=== PATIENT | male | born 1975 | race Caucasian/White ===

== ENCOUNTER 2019-01-10 03:26 | Emergency (ER) | payer OTHER ==
[2019-01-10] MEDS ORDERED: ALBUTEROL 2.5 MG/3 ML NEB SOL ONE (04:21)
[2019-01-10] MEDS ORDERED: IPRATROPIUM BROM 0.5MG/2.5ML ONE (04:21)
--- NOTE | 2019-01-10 05:04 | EDPHYS ---
Physician Documentation [facility] Name: Osmel Luz Age: 43 yrs Sex: Male : 1975 Arrival Date: 01/10/2019 Time: 03:27 Bed 20 Private MD: Alex Rust ED Physician Randy Mayen HPI: 01/10 04:57 This 43 yrs old Male presents to ER via Ambulatory with complaints of Cough, tw4 Sore Throat. 04:57 The patient or guardian reports cough, that is constant. Onset: The symptoms/episode tw4 began/occurred 2 week(s) ago. Severity of symptoms: At their worst the symptoms were moderate, in the emergency department the symptoms are unchanged. Modifying factors: The symptoms are alleviated by nothing, the symptoms are aggravated by nothing. Associated signs and symptoms: The patient has no apparent associated signs or symptoms. The patient has not experienced similar symptoms in the past. Historical: - Allergies: 03:45 No Known Allergies; rr5 - Home Meds: 03:45 None [Active]; rr5 - PMHx: 03:45 Bronchitis; rr5 - PSHx: 03:45 Knee surgery; brain surgery; rr5 - Immunization history:: Adult Immunizations up to date, Flu vaccine is up to date. - Social history:: Smoking status: Patient uses tobacco products, smokes one pack cigarettes per day. quit 2 weeks ago, Patient/guardian denies using alcohol, street drugs. - Ebola Screening: : Patient negative for fever greater than or equal to 101.5 degrees Fahrenheit, and additional compatible Ebola Virus Disease symptoms Patient denies exposure to infectious person Patient denies travel to an Ebola-affected area in the 21 days before illness onset. ROS: 04:57 Constitutional: Negative for fever, chills, and weight loss, Eyes: Negative for injury, tw4 pain, redness, and discharge, Cardiovascular: Negative for chest pain, palpitations, and edema, Abdomen/GI: Negative for abdominal pain, nausea, vomiting, diarrhea, and constipation, Back: Negative for injury and pain, MS/Extremity: Negative for injury and deformity, Skin: Negative for injury, rash, and discoloration, Neuro: Negative for headache, weakness, numbness, tingling, and seizure. 04:57 Respiratory: Positive for cough, Negative for dyspnea on exertion, hemoptysis, orthopnea, pleurisy, shortness of breath, sputum production. Exam: 04:57 Constitutional: This is a well developed, well nourished patient who is awake, alert, tw4 and in no acute distress. Head/Face: Normocephalic, atraumatic. Chest/axilla: Normal chest wall appearance and motion. Nontender with no deformity. No lesions are appreciated. Cardiovascular: Regular rate and rhythm with a normal S1 and S2. No gallops, murmurs, or rubs. Normal PMI, no JVD. No pulse deficits. Abdomen/GI: Soft, non-tender, with normal bowel sounds. No distension or tympany. No guarding or rebound. No evidence of tenderness throughout. Back: No spinal tenderness. No costovertebral tenderness. Full range of motion. MS/ Extremity: Pulses equal, no cyanosis. Neurovascular intact. Full, normal range of motion. Neuro: Awake and alert, GCS 15, oriented to person, place, time, and situation. Cranial nerves II-XII grossly intact. Motor strength 5/5 in all extremities. Sensory grossly intact. Cerebellar exam normal. Normal gait. 04:57 Respiratory: mild respiratory distress is noted, Respirations: normal, Breath sounds: wheezing: Vital Signs: 03:45 BP 137 / 87; Pulse 95; Resp 23; Temp 98.2; Pulse Ox 92% on 2 lpm NC; Weight 90.72 kg; rr5 Height 5 ft. 4 in. (162.56 cm); Pain 5/10; 04:30 BP 121 / 80; Pulse 85; Resp 21; Pulse Ox 98% on 8% Nebulizer Mask; rr5 05:00 BP 120 / 81; Pulse 90; Resp 20; Pulse Ox 99% ; rr5 05:15 BP 110 / 67; Pulse 71; Resp 18; Pulse Ox 98% ; rr5 03:45 Body Mass Index 34.33 (90.72 kg, 162.56 cm) rr5 MDM: 03:45 Patient medically screened. tw4 04:57 Differential Diagnosis: Bronchitis Influenza Upper Respiratory Infection Viral Syndrome tw4 Pneumonia. Data reviewed: vital signs, EMS record. Data interpreted: Pulse oximetry: Interpretation: normal. Test interpretation: by ED physician or midlevel provider: plain radiologic studies. Counseling: I had a detailed discussion with the patient and/or guardian regarding: the historical points, exam findings, and any diagnostic results supporting the discharge/admit diagnosis. Medication response: albuterol nebulizer treatment(s) relieved the patient's symptoms. The patient is no longer wheezing. Response to treatment: the patient's symptoms have resolved after treatment, and as a result, I will discharge patient, administer steroids, prednisone. Special discussion: I discussed with the patient/guardian in detail that at this point there is no indication for admission to the hospital. It is understood, however, that if the symptoms persist or worsen the patient needs to return immediately for re-evaluation. 01/10 03:59 Order name: Flu ea 01/10 03:59 Order name: Strep ea 01/10 04:01 Order name: Chest Pa And Lat (2 Views) XRAY tw4 01/10 04:58 Order name: Throat Culture EDMS Administered Medications: 04:13 Drug: DuoNeb (3:1) (2.5 mg - 0.5 mg) 3 ml Route: Nebulizer; rr5 05:15 Follow up: Response: No adverse reaction rr5 05:03 Drug: predniSONE 60 mg Route: PO; rr5 05:15 Follow up: Response: Medication administered at discharge. rr5 Disposition: 01/10/19 05:04 Discharged to Home. Impression: Simple chronic bronchitis. - Condition is Stable. - Discharge Instructions: Chronic Bronchitis, How to Use an Inhaler, Metered Dose Inhaler with Spacer, Cough, Adult, [id number]. - Prescriptions for Tessalon Perles 100 mg Oral Capsule - take 1 capsule by ORAL route every 8 hours As needed; 15 capsule. Medrol (Rosalio) 4 mg Oral Tablets, Dose Pack - take 1 tablet by ORAL route as directed - follow package instructions; 1 packet. Albuterol Sulfate 90 mcg/actuation - inhale 1-2 puff by INHALATION route every 4-6 hours; 1 Inhaler. - Medication Reconciliation Form, Thank You Letter, Antibiotic Education, Prescription Opioid Use form. - Follow up: Alex Rust MD; When: Upon discharge from the Emergency Department; Reason: If symptoms return, Recheck today's complaints, Continuance of care. - Problem is new. - Symptoms have improved. Signatures: Dispatcher [employer] Randy Rosen MD MD tw4 Munson, Pranav, RN RN rr5 Corrections: (The following items were deleted from the chart) 05:19 05:04 01/10/2019 05:04 Discharged to Home. Impression: Simple chronic bronchitis. rr5 Condition is Stable. Forms are Medication Reconciliation Form, Thank You Letter, Antibiotic Education, Prescription Opioid Use. Follow up: Alex Rust; When: Upon discharge from the Emergency Department; Reason: If symptoms return, Recheck today's complaints, Continuance of care. Problem is new. Symptoms have improved. tw4
--- NOTE | 2019-01-10 05:04 | ER ---
Nurse's Notes [facility] Name: Osmel Luz Age: 43 yrs Sex: Male : 1975 Arrival Date: 01/10/2019 Time: 03:27 Bed 20 Private MD: Alex Rust Diagnosis: Simple chronic bronchitis Presentation: 01/10 03:45 Presenting complaint: Patient states: started to have cough with phlegm 2 weeks ago, rr5 difficulty of breathing and episodes of fever. I took allergy pill it helps a little. 03:45 Transition of care: patient was not received from another setting of care. Onset of rr5 symptoms was December 2018. Risk Assessment: Do you want to hurt yourself or someone else? Patient reports no desire to harm self or others. Initial Sepsis Screen:. Care prior to arrival: None. 03:45 Method Of Arrival: Ambulatory rr5 03:45 Acuity: MANE 3 rr5 03:45 Initial Sepsis Screen: Does the patient meet any 2 criteria? No. Patient's initial rr5 sepsis screen is negative. Does the patient have a suspected source of infection? No. Patient's initial sepsis screen is negative. Historical: - Allergies: 03:45 No Known Allergies; rr5 - Home Meds: 03:45 None [Active]; rr5 - PMHx: 03:45 Bronchitis; rr5 - PSHx: 03:45 Knee surgery; brain surgery; rr5 - Immunization history:: Adult Immunizations up to date, Flu vaccine is up to date. - Social history:: Smoking status: Patient uses tobacco products, smokes one pack cigarettes per day. quit 2 weeks ago, Patient/guardian denies using alcohol, street drugs. - Ebola Screening: : Patient negative for fever greater than or equal to 101.5 degrees Fahrenheit, and additional compatible Ebola Virus Disease symptoms Patient denies exposure to infectious person Patient denies travel to an Ebola-affected area in the 21 days before illness onset. Screenin:56 Abuse screen: Denies threats or abuse. Denies injuries from another. Nutritional rr5 screening: No deficits noted. Tuberculosis screening: No symptoms or risk factors identified. Fall Risk None identified. Total Rich Fall Scale indicates No Risk (0-24 pts). Assessment: 03:45 General: Appears in no apparent distress. uncomfortable, Behavior is calm, cooperative, rr5 appropriate for age. 03:45 Pain: Complains of pain in throat Pain does not radiate. Pain currently is 5 out of 10 rr5 on a pain scale. Quality of pain is described as aching, Pain began gradually, Is intermittent. Neuro: Level of Consciousness is awake, alert, obeys commands, Oriented to person, place, time, situation, Appropriate for age. Cardiovascular: Capillary refill < 3 seconds Patient's skin is warm and dry. Respiratory: Airway is patent Respiratory effort is even, with nasal flaring, Respiratory pattern is regular, tachypnea Breath sounds with wheezes. GI: No signs and/or symptoms were reported involving the gastrointestinal system. : No signs and/or symptoms were reported regarding the genitourinary system. EENT: Throat has enlarged tonsils with gag reflex present. Derm: No signs and/or symptoms reported regarding the dermatologic system. Musculoskeletal: Capillary refill < 3 seconds, Range of motion:. 04:40 Reassessment: Patient appears in no apparent distress at this time. Patient is alert, rr5 oriented x 3, equal unlabored respirations, skin warm/dry/pink. Patient states symptoms have improved. 05:15 Reassessment: Patient appears in no apparent distress at this time. Patient is alert, rr5 oriented x 3, equal unlabored respirations, skin warm/dry/pink. discharge instruction given and explained without complaints made. Patient states feeling better. Patient states symptoms have improved. Vital Signs: 03:45 BP 137 / 87; Pulse 95; Resp 23; Temp 98.2; Pulse Ox 92% on 2 lpm NC; Weight 90.72 kg; rr5 Height 5 ft. 4 in. (162.56 cm); Pain 5/10; 04:30 BP 121 / 80; Pulse 85; Resp 21; Pulse Ox 98% on 8% Nebulizer Mask; rr5 05:00 BP 120 / 81; Pulse 90; Resp 20; Pulse Ox 99% ; rr5 05:15 BP 110 / 67; Pulse 71; Resp 18; Pulse Ox 98% ; rr5 03:45 Body Mass Index 34.33 (90.72 kg, 162.56 cm) rr5 ED Course: 03:27 Patient arrived in ED. ds1 03:27 Alex Rust MD is Private Physician. ds1 03:44 Munson, Pranav, RN is Primary Nurse. rr5 03:45 Randy Mayen MD is Attending Physician. tw4 03:46 Arm band placed on. rr5 03:48 Triage completed. rr5 03:50 Patient has correct armband on for positive identification. Bed in low position. Call rr5 light in reach. Side rails up X2. Pulse ox on. NIBP on. 04:30 Chest Pa And Lat (2 Views) XRAY In Process Unspecified. EDMS 05:03 Alex Rust MD is Referral Physician. tw4 05:15 No provider procedures requiring assistance completed. Patient did not have IV access rr5 during this emergency room visit. Administered Medications: 04:13 Drug: DuoNeb (3:1) (2.5 mg - 0.5 mg) 3 ml Route: Nebulizer; rr5 05:15 Follow up: Response: No adverse reaction rr5 05:03 Drug: predniSONE 60 mg Route: PO; rr5 05:15 Follow up: Response: Medication administered at discharge. rr5 Outcome: 05:04 Discharge ordered by . tw4 05:15 Discharged to home ambulatory. rr5 05:15 Condition: stable 05:15 Discharge instructions given to patient, Instructed on discharge instructions, follow up and referral plans. medication usage, Demonstrated understanding of instructions, follow-up care, medications, Prescriptions given X 3. 05:19 Patient left the ED. rr5 Signatures: Dispatcher [employer] [facility] Saira Bertrand ds1 Randy Mayen MD MD tw4 Pranav Munson RN RN rr5 Corrections: (The following items were deleted from the chart) 03:57 03:45 BP 137 / 87; Pulse 95bpm; Resp 23bpm; Pulse Ox 92% 2 lpm Nasal Cannula; Temp rr5 98.2F; 90.72 kg; Height 5 ft. 4 in.; BMI: 34.3; Pain 4/10; rr5
[2019-01-10] MEDS ORDERED: predniSONE 20 MG TAB ONE (05:07)
--- NOTE | 2019-01-10 08:53 | RAD REPORT ---
EXAM DESCRIPTION: Rj Murray (2 Views)01/10/2019 4:32 am CLINICAL HISTORY: Cough COMPARISON: 2014 FINDINGS: The lungs appear clear of acute infiltrate. The heart is normal size IMPRESSION: No acute abnormalities displayed
== END 2019-01-10 05:19 | disposition home or self-care (01) ==
LOC: ER 03:26
DX: J41.0 Simple chronic bronchitis (principal); Z72.0 Tobacco use
CPT/HCPCS: 71046; 87070; 87081; 87804; 94640; 99284; J7512

== ENCOUNTER 2021-06-24 13:25 | Emergency (ER) | payer OTHER ==
--- NOTE | 2021-06-24 14:58 | RAD REPORT ---
EXAM DESCRIPTION: RAD - Foot Right 3 View - 06/24/2021 2:34 pm CLINICAL HISTORY: PAIN COMPARISON: No comparisons FINDINGS: Minimally displaced fracture involves the base of the fifth metatarsal with mild soft tiss ue swelling. No dislocation is evident. Small calcaneal spurs.
--- NOTE | 2021-06-24 15:08 | EDPHYS ---
Physician Documentation [facility] Name: Osmel Luz Age: 45 yrs Sex: Male : 1975 Arrival Date: 06/24/2021 Time: 13:25 Bed 11 Private MD: ED Physician Jamey Griffin HPI: 06/24 13:43 This 45 yrs old Male presents to ER via Unassigned with complaints of Ankle rn Injury. 13:43 The patient presents with an injury, pain. The complaints affect the right foot. Onset: rn The symptoms/episode began/occurred just prior to arrival. Context: The problem was sustained at home, resulted from a mis-step by the patient, The mechanism of injury is unknown. The patient can partially bear weight on the affected extremity. the patient is able to ambulate. Associated signs and symptoms: Pertinent positives: swelling, Pertinent negatives: weakness. Modifying factors: The symptoms are alleviated by nothing, the symptoms are aggravated by weight bearing, movement. Severity of symptoms: At their worst the symptoms were mild, in the emergency department the symptoms are unchanged. The patient has not experienced similar symptoms in the past. The patient has not recently seen a physician. Patient states thinks had a misstep and twisted foot. Reports isolated pain to the lateral right midfoot. Denies ankle pain. No knee pain. No toe pain. Was not a fall or misstep from a height or step.. Historical: - Allergies: 14:31 No Known Allergies; kg - Home Meds: 14:31 risperidone oral [Active]; levothyroxine [Active]; kg - PMHx: 14:31 Bronchitis; Thyroid dysfuntion; kg - Immunization history:: Adult Immunizations up to date, Client reports receiving the 2nd dose of the Covid vaccine, Date received: June 17, 2021 [employer] Client reports receiving the 1st dose of the Covid vaccine, May 2021 [employer]. - Social history:: Smoking status: Patient reports the use of cigarette tobacco products, smokes one pack cigarettes per day. - Family history:: not pertinent. - Hospitalizations: : No recent hospitalization is reported. ROS: 13:43 Constitutional: Negative for fever, chills, and weight loss, MS/Extremity: Positive for rn pain and injury to right lateral foot Skin: Negative for injury, rash, and discoloration, Neuro: Negative for numbness or tingling Exam: 13:43 Constitutional: This is a well developed, well nourished patient who is awake, alert, rn and in no acute distress. MS/ Extremity: Pulses equal, no cyanosis. Neurovascular intact. Full, normal range of motion. Equal circumference. Mild tenderness right lateral midfoot without open wounds or significant discoloration. No tenderness to right ankle. Full range of motion of ankle and toes. Vital Signs: 14:30 BP 110 / 83; Pulse 77; Resp 20; Temp 97.8(TE); Pulse Ox 97% on R/A; Weight 86.18 kg kg (R); Height 5 ft. 7 in. (170.18 cm); Pain 4/10; 14:30 Body Mass Index 29.76 (86.18 kg, 170.18 cm) kg MDM: 15:05 Differential diagnosis: fracture, sprain. Data reviewed: vital signs, nurses notes, rn radiologic studies, plain films, and as a result, I will discharge patient. Test interpretation: by ED physician or midlevel provider: plain radiologic studies, X-ray right foot shows nondisplaced fracture of the base of the fifth metatarsal. Counseling: I had a detailed discussion with the patient and/or guardian regarding: the historical points, exam findings, and any diagnostic results supporting the discharge/admit diagnosis, radiology results, the need for outpatient follow up, to return to the emergency department if symptoms worsen or persist or if there are any questions or concerns that arise at home. Special discussion: I discussed with the patient/guardian in detail that at this point there is no indication for admission to the hospital. It is understood, however, that if the symptoms persist or worsen the patient needs to return immediately for re-evaluation. Based on the history and exam findings, there is no indication for further emergent testing or inpatient evaluation. I discussed with the patient/guardian the need to see the orthopedic surgeon for further evaluation of the symptoms. 15:07 Patient medically screened. rn 06/24 13:31 Order name: XRAY Foot RIGHT 3 View; Complete Time: 15:04 rn 06/24 15:07 Order name: Splint: post-op shoe; Complete Time: 15:15 rn Administered Medications: No medications were administered Disposition Summary: 06/24/21 15:07 Discharge Ordered Location: Home rn Problem: new rn Symptoms: have improved rn Condition: Stable rn Diagnosis - Nondisplaced fracture of fifth metatarsal bone, right foot rn Followup: rn - With: Jethro Rodriguez MD - When: 1 week - Reason: Recheck today's complaints, Re-evaluation by your physician Discharge Instructions: - Discharge Summary Sheet rn - Metatarsal Fracture rn Forms: - Medication Reconciliation Form rn - Thank You Letter rn - Antibiotic learning and development assistant - Work release form iw - Prescription Opioid Use rn Signatures: Dispatcher [employer] EDJamey Nair MD MD rn Graham, Kristen, RN RN kg Corrections: (The following items were deleted from the chart) 15:06 15:05 Test interpretation: by ED physician or midlevel provider: plain radiologic rn studies, X-ray right foot shows nondisplaced fracture of the base of the fifth metacarpal, rn
--- NOTE | 2021-06-24 15:08 | ER ---
Nurse's Notes [facility] Name: Osmel Luz Age: 45 yrs Sex: Male : 1975 Arrival Date: 06/24/2021 Time: 13:25 Bed 11 Private MD: Diagnosis: Nondisplaced fracture of fifth metatarsal bone, right foot Presentation: 06/24 14:30 Chief complaint: Patient states: Right ankle pain. Pt stated he twisted his ankle and kg fell. Denies hitting head. Coronavirus screen: Client denies travel out of the [place] in the last 14 days. At this time, unable to obtain information related to travel outside the [place] Ebola Screen: Patient negative for fever greater than or equal to 101.5 degrees Fahrenheit, and additional compatible Ebola Virus Disease symptoms Patient denies exposure to infectious person. Patient denies travel to an Ebola-affected area in the 21 days before illness onset. Initial Sepsis Screen: Does the patient meet any 2 criteria? No. Patient's initial sepsis screen is negative. Does the patient have a suspected source of infection? No. Patient's initial sepsis screen is negative. Risk Assessment: Do you want to hurt yourself or someone else? Patient reports no desire to harm self or others. Onset of symptoms was June 24, 2021 at 11:30. 14:30 Method Of Arrival: Ambulatory kg 14:30 Method Of Arrival: Wheelchair kg 14:30 Acuity: MANE 4 kg Triage Assessment: 14:31 General: Appears in no apparent distress. Behavior is calm, cooperative, appropriate kg for age, quiet. Pain: Complains of pain in Right ankle. Pain radiates to right foot. Musculoskeletal: Reports pain in Right ankle, Right foot. Historical: - Allergies: 14:31 No Known Allergies; kg - Home Meds: 14:31 risperidone oral [Active]; levothyroxine [Active]; kg - PMHx: 14:31 Bronchitis; Thyroid dysfuntion; kg - Immunization history:: Adult Immunizations up to date, Client reports receiving the 2nd dose of the Covid vaccine, Date received: June 17, 2021 [employer] Client reports receiving the 1st dose of the Covid vaccine, May 2021 [employer]. - Social history:: Smoking status: Patient reports the use of cigarette tobacco products, smokes one pack cigarettes per day. - Family history:: not pertinent. - Hospitalizations: : No recent hospitalization is reported. Screenin:35 Abuse screen: Denies threats or abuse. Denies injuries from another. kg 14:40 Fall Risk No fall in past 12 months (0 pts). Secondary diagnosis (15 points) impaired kg mobility, No IV (0 pts). Ambulatory Aid- Crutches/Cane/Walker (15 pts). Gait- Impaired (20 pts.). Mental Status- Oriented to own ability (0 pts). Total Rich Fall Scale indicates Low Risk Score (25-44 pts). Vital Signs: 14:30 BP 110 / 83; Pulse 77; Resp 20; Temp 97.8(TE); Pulse Ox 97% on R/A; Weight 86.18 kg kg (R); Height 5 ft. 7 in. (170.18 cm); Pain 4/10; 14:30 Body Mass Index 29.76 (86.18 kg, 170.18 cm) kg ED Course: 13:25 Patient arrived in ED. ds1 13:27 Jamey Griffin MD is Attending Physician. rn 14:31 Triage completed. kg 14:34 XRAY Foot RIGHT 3 View In Process Unspecified. EDMS 14:40 Arm band placed on right wrist. kg 15:06 Jethro Rodriguez MD is Referral Physician. rn 15:09 Irasema Chandler, RN is Primary Nurse. iw Administered Medications: No medications were administered Outcome: 15:07 Discharge ordered by . rn 15:24 Patient left the ED. iw Signatures: Dispatcher [employer] EDDE Bertrand Saira ds1 Irasema Chandler, RN LELA iw Jamey Griffin MD MD rn Graham, Kristen, RN RN kg
[2021-06-24 15:29] VITALS: BP 110/83; TEMP 97.8; O2SAT 97
== END 2021-06-24 15:24 | disposition home or self-care (01) ==
LOC: ER 13:25
DX: S92.354A Nondisplaced fracture of fifth metatarsal bone, right foot, initial encounter for closed fracture (principal); X58.XXXA Exposure to other specified factors, initial encounter; Y93.01 Activity, walking, marching and hiking; F17.210 Nicotine dependence, cigarettes, uncomplicated
CPT/HCPCS: 99282

== ENCOUNTER 2024-11-26 11:47 | Inpatient (IN) | payer OTHER ==
[2024-11-26] MEDS ORDERED: LEVALBUTEROL 1.25 MG/3 ML NEB ONE (12:47)
[2024-11-26] MEDS ORDERED: NA CHLORIDE 0.9% 500 ML ONE (12:48)
[2024-11-26] MEDS ORDERED: IBUPROFEN 400 MG TAB ONE (12:48)
[2024-11-26] MEDS ORDERED: ACETAMINOPHEN 325 MG TABLET ONE (12:48)
[2024-11-26 13:08] LABS: SARS-CoV-2 Antigen CONTROL BLUE LINE VIS/BG OK; SARS-CoV-2 Antigen Rapid Res Negative (Negative)
--- NOTE | 2024-11-26 13:16 | RAD REPORT ---
EXAM: CT Head Brain Wo Cont HISTORY: Headache;Dizziness COMPARISON: 07/06/2011 TECHNIQUE: Multiple contiguous axial images were obtained for a CT of the brain without contrast. Sag ittal and coronal reformats were performed. One or more of the following dose reduction techniques were used: Automated exposure control, adjus tment of the mA and kV according to patient size, and iterative reconstruction. Unless otherwise specified, incidental findings do not require dedicated imaging follow-up. FINDINGS: No evidence of hydrocephalus, intracranial hemorrhage, or extra-axial fluid collection. Chronic changes of bifrontal parasagittal encephalomalacia, and overlying frontal calvarium hardware fixation, with defect along the cribriform plate communicating with the cranialized frontal sinuses most inferiorly, stable. Patchy opacification within the anterior ethmoidal air cells bilaterally, al so previously seen. Small focus of probable encephalomalacia along the right anterior temporal pole, also appears to be chronic. Elsewhere, the brain is normal in morphology. The calvarium is intact. The visualized paranasal sinuses and mastoid air cells are essentially clear . IMPRESSION: No evidence of acute intracranial abnormality. Chronic findings as above.
--- NOTE | 2024-11-26 14:48 | RAD REPORT ---
EXAMINATION: ONE VIEW CHEST XR CLINICAL INDICATION: Male, 49 years old.,COUGH TECHNIQUE: Frontal chest projection is submitted. Examination is limited by patient positioning and t echnique. COMPARISON: 01/10/2019 FINDINGS: Elevation of the right hemidiaphragm, more prominent than on prior exam, could relate to under aerati on. Lungs are otherwise clear. No pneumothorax or sizable effusion. The heart is normal in size. Mediastinal contours are unremarkable. IMPRESSION: No acute intrathoracic abnormalities although there is elevation of the right hemidiaphragm which may relate to under aeration.
[2024-11-26] MEDS ORDERED: OSELTAMIVIR 75 MG CAP PO ONE (15:16)
--- NOTE | 2024-11-26 15:24 | ER ---
Nurse's Notes [facility] Name: Osmel Luz Age: 49 yrs Sex: Male : 1975 Arrival Date: 11/26/2024 Time: 11:47 Bed 20 Private MD: Diagnosis: Influenza due to identified novel influenza A virus with other respiratory manifestations;COPD/ Chronic obstructive pulmonary disease with (acute) exacerbation Presentation: 11/26 11:58 Chief complaint: Chief complaint: Patient states: the neighbor has been playing loud me1 music , i called the chaplain resident a couple times, my head is now dizziness since yesterday , also has been coughing for 2-3 days. 11:58 Coronavirus screen: At this time, the client does not indicate any symptoms associated iw with coronavirus-19. Ebola Screen: No symptoms or risks identified at this time. Initial Sepsis Screen: Does the patient meet any 2 criteria? No. Patient's initial sepsis screen is negative. Does the patient have a suspected source of infection? No. Patient's initial sepsis screen is negative. Risk Assessment: Do you want to hurt yourself or someone else? Patient reports no desire to harm self or others. Onset of symptoms was November 24, 2024. 11:58 Method Of Arrival: Ambulatory iw 11:58 Acuity: MANE 3 iw Triage Assessment: 15:18 Headache History: The patient has had previous headaches and this one is similar to me1 previous episodes. 15:19 Pain: Also complains of no other associated symptoms. me1 Historical: - Allergies: 12:00 No Known Allergies; iw - PMHx: 12:00 Bronchitis; Thyroid dysfuntion; iw - PSHx: 12:00 bladder; iw - Immunization history:: Adult Immunizations unknown. - Infectious Disease History:: Denies. - Social history:: Smoking status: Patient reports the use of cigarette tobacco products. - Family history:: not pertinent. - Hospitalizations: : No recent hospitalization is reported. Screenin:01 [facility] ED Fall Risk Assessment (Adult) History of falling in the last 3 months, me1 including since admission No falls in past 3 months (0 pts) Confusion or Disorientation No (0 pts) Intoxicated or Sedated No (0 pts) Impaired Gait No (0 pts) Mobility Assist Device Used No (0 pt) Altered Elimination No (0 pt) Score/Fall Risk Level 0 - 2 = Low Risk Maintained a safe environment, Provided non-skid footwear, Hourly rounding (assess needs \T\ fall precautionary measures) done. Abuse screen: Denies threats or abuse. Nutritional screening: No deficits noted. Tuberculosis screening: No symptoms or risk factors identified. Assessment: 12:30 General: Appears uncomfortable, well groomed, well nourished, Behavior is calm, me1 cooperative, appropriate for age, Reports the neighbor has been playing loud music , i called the chaplain resident a couple times, my head is now dizziness since yesterday , also has been coughing for 2-3 days. Pain: Complains of pain in head Pain does not radiate. Pain currently is 6 out of 10 on a pain scale. Quality of pain is described as aching, Pain began gradually, 2-3 days ago. Is continuous. Neuro: Level of Consciousness is awake, alert, obeys commands, Oriented to person, place, time, situation, Appropriate for age Reports dizziness, since 3 days ago. Cardiovascular: Patient's skin is warm and dry. Respiratory: Airway is patent Respiratory effort is even, unlabored, Respiratory pattern is regular, symmetrical. Respiratory: Reports cough that is persistent. GI: No signs and/or symptoms were reported involving the gastrointestinal system. : No signs and/or symptoms were reported regarding the genitourinary system. EENT: No signs and/or symptoms were reported regarding the EENT system. Derm: Skin is intact, is healthy with good turgor, Skin is pink, warm \T\ dry. Musculoskeletal: No signs and/or symptoms reported regarding the musculoskeletal system. Vital Signs: 11:58 BP 158 / 104; Pulse 91; Resp 20; Temp 99.1; Pulse Ox 92% on R/A; Weight 91.63 kg; iw Height 5 ft. 1 in. ; 13:00 BP 149 / 78; Pulse 87; Resp 19; Pulse Ox 100% on 4 lpm NC; me1 14:00 BP 156 / 85; Pulse 86; Resp 19; Pulse Ox 96% on 4 lpm NC; me1 15:00 BP 148 / 86; Pulse 82; Resp 16; Pulse Ox 98% on R/A; me1 16:00 BP 138 / 84; Pulse 81; Resp 19; Pulse Ox 96% on 4 lpm NC; me1 17:00 BP 138 / 88; Pulse 78; Resp 19; Pulse Ox 98% on 4 lpm NC; me1 11:58 Body Mass Index 38.17 (91.63 kg, 154.94 cm) iw 14:00 decreased o2 to 3 liters NC and o2 sat dropped to 93%. Turned o2 back up to 4 lpm via ncme1 ED Course: 11:50 Patient arrived in ED. mr 11:55 Jamey Griffin MD is Attending Physician. rn 12:00 Triage completed. iw 12:01 Arm band placed on. iw 12:24 CT Head Brain wo Cont In Process Unspecified. EDMS 12:37 Alycia Acevedo, LELA is Primary Nurse. me1 12:45 COVID swab sent to lab. Flu and/or RSV swab sent to lab. Strep swab sent to lab. me1 Inserted saline lock: 22 gauge in right antecubital area, using aseptic technique. 12:56 XRAY Chest (1 view) In Process Unspecified. EDMS 15:01 Patient has correct armband on for positive identification. Bed in low position. Call me1 light in reach. Side rails up X2. Provided Education on: POC. Verbalized understanding.. Client placed on continuous cardiac and pulse oximetry monitoring. NIBP monitoring applied. Pulse ox on. NIBP on. 15:01 No provider procedures requiring assistance completed. me1 15:23 Skinny Tejada is Hospitalizing Provider. rn 16:56 Patient admitted, IV remains in place. me1 Administered Medications: 12:06 CANCELLED (Duplicate Order): ns 0.9% 1000 ml IV at 1000 ml once; to be given as a bolus iw over 60 minutes 12:53 Drug: Acetaminophen PO 650 mg PO once Route: PO; me1 14:16 Follow up: Response: No adverse reaction me1 12:53 Drug: NS 0.9% IV 500 ml 500 ml IV at 1 bolus once; to be given as a bolus over 30 me1 minutes Volume: 500 ml; Route: IV; Rate: 1 bolus; Site: right antecubital; 14:16 Follow up: Response: No adverse reaction; IV Status: Completed infusion; IV Intake: me1 500ml 12:53 Drug: Levalbuterol Inhalation 1.25 mg Inhalation once Route: Inhalation; me1 14:16 Follow up: Response: No adverse reaction; Wheezing diminished me1 12:54 Drug: Ibuprofen PO 800 mg PO once Route: PO; me1 14:16 Follow up: Response: No adverse reaction me1 15:17 Drug: Oseltamivir PO 75 mg PO once Route: PO; me1 15:23 Follow up: Response: No adverse reaction me1 15:29 Drug: MethylPrednisoLONE IVP 125 mg IVP once Route: IVP; Site: right antecubital; me1 15:35 Follow up: Response: No adverse reaction me1 Medication: 15:01 VIS not applicable for this client. me1 Intake: 14:16 IV: 500ml; Total: 500ml. me1 Outcome: 15:24 Decision to Hospitalize by Provider. rn 16:56 Admitted to Tele accompanied by tech, via wheelchair, room 407, with oxygen, with me1 chart, Report called to faxed, receipt confirmed with Kimberley. 16:56 Condition: stable 16:56 Instructed on the need for admit, 17:32 Patient left the ED. me1 Signatures: Dispatcher [employer] Rebecca Poole, Irasema Longoria RN RN Jamey Griffin MD MD rn Eddleman, Michelle, RN RN me1 Corrections: (The following items were deleted from the chart) 12:00 11:58 Chief complaint: [facility] 14:16 11:58 Chief complaint: Patient states: the neighbor has been playing loud music , i me1 called the chaplain resident a couple times, my head is now dizziness since yesterday , also has been coughing for 2-3 days Chief complaint: Patient states: the neighbor has been playing loud music , i called the chaplain resident a couple times, my head is now dizziness since yesterday , also has been coughing for 2-3 days 14:57 11:58 Chief complaint: Patient states: the neighbor has been playing loud music , i me1 called the chaplain resident a couple times, my head is now dizziness since yesterday , also has been coughing for 2-3 days Chief complaint: Patient states: the neighbor has been playing loud music , i called the chaplain resident a couple times, my head is now dizziness since yesterday , also has been coughing for 2-3 days me1 15:18 13:00 BP 188 / 110; Pulse 86bpm; Resp 19bpm; Pulse Ox 96% 4 lpm Nasal Cannula; me1 decreased o2 to 3 liters NC and o2 sat dropped to 93%. Turned o2 back up to 4 lpm via nc; me1 16:51 16:51 Urine collected: clean catch specimen, clear, me1 me1
--- NOTE | 2024-11-26 15:24 | EDPHYS ---
Physician Documentation [facility] Name: Osmel Luz Age: 49 yrs Sex: Male : 1975 Arrival Date: 11/26/2024 Time: 11:47 Bed 20 Private MD: ED Physician Jamey Griffin HPI: 11/26 15:14 This 49 yrs old Male presents to ER via Ambulatory with complaints of Dizziness, rn Headache. 15:14 The patient or guardian reports cough, flu symptoms. Onset: The symptoms/episode rn began/occurred 2 day(s) ago. Severity of symptoms: At their worst the symptoms were moderate, in the emergency department the symptoms are unchanged. The patient has not experienced similar symptoms in the past. The patient has not recently seen a physician. Patient reports here for headache, not sleeping well, cough and shortness of breath for the last 2 days. Attributes headache to neighbors loud music and playing music all day long. Also reports productive cough and shortness of breath with smoking history.. Historical: - Allergies: 12:00 No Known Allergies; iw - PMHx: 12:00 Bronchitis; Thyroid dysfuntion; iw - PSHx: 12:00 bladder; iw - Immunization history:: Adult Immunizations unknown. - Infectious Disease History:: Denies. - Social history:: Smoking status: Patient reports the use of cigarette tobacco products. - Family history:: not pertinent. - Hospitalizations: : No recent hospitalization is reported. ROS: 15:14 Constitutional: Positive for subjective fever and chills Eyes: Negative for injury, rn pain, redness, and discharge, Neck: Negative for injury, pain, and swelling, Cardiovascular: Negative for chest pain, palpitations, and edema, Respiratory: Positive for cough and shortness of breath Abdomen/GI: Negative for abdominal pain, nausea, vomiting, diarrhea, and constipation, MS/Extremity: Negative for injury and deformity, Skin: Negative for injury, rash, and discoloration, Neuro: Positive for headache and generalized weakness Exam: 15:14 Constitutional: This is a well developed, well nourished patient who is awake, alert, rn and in no acute distress. Head/Face: Normocephalic, atraumatic. Neck: No meningismus Cardiovascular: Regular rate and rhythm. No pulse deficits. Respiratory: Mild tachypnea with coarse bilateral breath sounds and wheezing bilaterally Abdomen/GI: Soft, non-tender MS/ Extremity: Pulses equal, no cyanosis. Neurovascular intact. Full, normal range of motion. Equal circumference. Neuro: Awake and alert, GCS 15 17:19 ECG was reviewed by the Attending Physician. rn Vital Signs: 11:58 BP 158 / 104; Pulse 91; Resp 20; Temp 99.1; Pulse Ox 92% on R/A; Weight 91.63 kg; iw Height 5 ft. 1 in. ; 13:00 BP 149 / 78; Pulse 87; Resp 19; Pulse Ox 100% on 4 lpm NC; me1 14:00 BP 156 / 85; Pulse 86; Resp 19; Pulse Ox 96% on 4 lpm NC; me1 15:00 BP 148 / 86; Pulse 82; Resp 16; Pulse Ox 98% on R/A; me1 16:00 BP 138 / 84; Pulse 81; Resp 19; Pulse Ox 96% on 4 lpm NC; me1 17:00 BP 138 / 88; Pulse 78; Resp 19; Pulse Ox 98% on 4 lpm NC; me1 11:58 Body Mass Index 38.17 (91.63 kg, 154.94 cm) iw 14:00 decreased o2 to 3 liters NC and o2 sat dropped to 93%. Turned o2 back up to 4 lpm via ncme1 MDM: 11:55 Medical Screening Exam initiated rn 15:22 Differential Diagnosis: Bronchitis Influenza Upper Respiratory Infection Viral Syndrome rn Other COPD exacerbation. Data reviewed: vital signs, nurses notes. 15:23 Care significantly affected by the following chronic conditions: Hypertension, Chronic rn Obstructive Pulmonary Disease. Counseling: I had a detailed discussion with the patient and/or guardian regarding the historical points, exam findings, and any diagnostic results supporting the discharge/admit diagnosis, lab results, radiology results, the need for further work-up and treatment in the hospital. Response to treatment: the patient's symptoms have mildly improved after treatment. ED course: Patient 85% on room air, 93% on 3 L, not on oxygen at home. Flu positive with COPD exacerbation. Will admit to hospitalist service for further management.. 11/26 12:05 Order name: SARS-COV-2 Antigen Rapid; Complete Time: 15: iw 11/26 12:05 Order name: Flu; Complete Time: 15: iw 11/26 12:05 Order name: Strep iw 11/26 13:12 Order name: Throat Culture EDMS 11/26 16:21 Order name: Urinalysis w/ reflexes EDMS 11/26 16:21 Order name: Basic Metabolic Panel EDMS 11/26 16:21 Order name: Basic Metabolic Panel EDMS 11/26 16:21 Order name: Basic Metabolic Panel EDMS 11/26 16:21 Order name: Basic Metabolic Panel EDMS 11/26 16:21 Order name: Basic Metabolic Panel EDMS 11/26 16:21 Order name: Basic Metabolic Panel EDMS 11/26 16:21 Order name: CBC with Automated Diff EDMS 11/26 16:21 Order name: CBC with Automated Diff EDMS 11/26 16:21 Order name: CBC with Automated Diff EDMS 11/26 16:21 Order name: CBC with Automated Diff EDMS 11/26 16:21 Order name: CBC with Automated Diff EDMS 11/26 16:21 Order name: CBC with Automated Diff EDMS 11/26 16:21 Order name: Magnesium EDMS 11/26 16:21 Order name: Magnesium EDMS 11/26 16:21 Order name: Magnesium EDMS 11/26 16:21 Order name: Magnesium EDMS 11/26 16:21 Order name: Magnesium EDMS 11/26 16:21 Order name: Magnesium EDMS 11/26 16:21 Order name: Phosphorus EDMS 11/26 16:21 Order name: Phosphorus EDMS 11/26 16:21 Order name: Phosphorus EDMS 11/26 16:21 Order name: Phosphorus EDMS 11/26 16:21 Order name: Phosphorus EDMS 11/26 16:21 Order name: Phosphorus EDMS 11/26 16:22 Order name: Basic Metabolic Panel EDMS 11/26 16:23 Order name: CBC with Automated Diff EDMS 11/26 16:23 Order name: Magnesium EDMS 11/26 16:23 Order name: Phosphorus EDMS 11/26 12:05 Order name: CT Head Brain wo Cont; Complete Time: 15:09 iw 11/26 12:05 Order name: XRAY Chest (1 view); Complete Time: 15:09 iw 11/26 12:06 Order name: IV Start; Complete Time: 12:45 iw 11/26 16:57 Order name: EKG - Nurse/Tech; Complete Time: 16:57 me1 EC:19 Rate is 78 beats/min. Rhythm is regular. QRS interval is normal. QT interval is normal. rn No Q waves. T waves are Normal. No ST changes noted. Clinical impression: NSR w/ Non-specific ST/T Changes. Interpreted by me. Reviewed by me. Administered Medications: 12:06 CANCELLED (Duplicate Order): ns 0.9% 1000 ml IV at 1000 ml once; to be given as a bolus iw over 60 minutes 12:53 Drug: Acetaminophen PO 650 mg PO once Route: PO; me1 14:16 Follow up: Response: No adverse reaction me1 12:53 Drug: NS 0.9% IV 500 ml 500 ml IV at 1 bolus once; to be given as a bolus over 30 me1 minutes Volume: 500 ml; Route: IV; Rate: 1 bolus; Site: right antecubital; 14:16 Follow up: Response: No adverse reaction; IV Status: Completed infusion; IV Intake: me1 500ml 12:53 Drug: Levalbuterol Inhalation 1.25 mg Inhalation once Route: Inhalation; me1 14:16 Follow up: Response: No adverse reaction; Wheezing diminished me1 12:54 Drug: Ibuprofen PO 800 mg PO once Route: PO; me1 14:16 Follow up: Response: No adverse reaction me1 15:17 Drug: Oseltamivir PO 75 mg PO once Route: PO; me1 15:23 Follow up: Response: No adverse reaction me1 15:29 Drug: MethylPrednisoLONE IVP 125 mg IVP once Route: IVP; Site: right antecubital; me1 15:35 Follow up: Response: No adverse reaction me1 Disposition Summary: 11/26/24 15:24 Hospitalization Ordered Notes: Hospitalization Status: Inpatient Admission rn Provider: Skinny Tejada rn Location: Telemetry/MedSurg (Inpatient) rn Condition: Stable rn Problem: new rn Symptoms: have improved rn Bed/Room Type: Standard rn Room Assignment: 407(11/26/24 16:27) sp Diagnosis - Influenza due to identified novel influenza A virus with other respiratory rn manifestations - COPD/ Chronic obstructive pulmonary disease with (acute) exacerbation rn Forms: - Medication Reconciliation Form rn - SBAR form rn - Leadership Thank You Letter rn Signatures: Dispatcher [employer] EDTegan Gresham Irene, RN RN iw Nieto, Roman, MD MD rn Eddleman, Michelle, RN RN me1 Corrections: (The following items were deleted from the chart) 12: 12:05 SARS-COV-2 Antigen Rapid+I.LAB.BRZ ordered. EDMS EDMS 12: 12:05 Influenza Screen (A \T\ B)+BA.LAB.BRZ ordered. EDMS EDMS 12: 12:05 Group A Streptococcus Rapid Sc+BA.LAB.BRZ ordered. EDMS EDMS 12: 12:05 Chest Single View+RAD.RAD.BRZ ordered. EDMS EDMS 12: 12:06 NS 0.9% IV 1000 ml IV at 1000 ml once; to be given as a bolus over 60 minutes iw ordered. iw 16:27 15:24 rn sp
[2024-11-26] MEDS ORDERED: METHYLPREDNISOLONE 125 MG INJ ONE (15:25)
--- NOTE | 2024-11-26 15:57 | P.HP ---
Patient History Date of Service: 11/26/24 Reason for admission: Acute hypoxic respiratory failure secondary to COPD exacer bobby History of Present Illness: Osmel Luz is a 49-year-old male with past medical history of hypothyroidism and bronchitis who presents to the ED with chief complaint of cough, headache, and dizziness for the last 3 days. He reports he has a doctor is not treated for COPD, he is not familiar with the terminology COPD. On evaluation he has increased work of breathing, on 2 L of nasal cannula left lower lobe diminished with diffuse rhonchi, reports dry cough and positive for influenza A. Initial vitals BP 158 / 104; Pulse 91; Resp 20; Temp 99.1; Pulse Ox 92% on R/A Chest x-ray report "No acute intrathoracic abnormalities although there is elevation of the right hemidiaphragm which may relate to under aeration." Head CT report " No evidence of hydrocephalus, intracranial hemorrhage, or extra-axial fluid collection. Chronic changes of bifrontal parasagittal encephalomalacia, and overlying frontal calvarium hardware fixation, with defect along the cribriform plate communicating with the cranialized frontal sinuses most inferiorly, stable. Patchy opacification within the anterior ethmoidal air cells bilaterally, also previously seen. Small focus of probable encephalomalacia along the right anterior temporal pole, also appears to be chronic. Elsewhere, the brain is normal in morphology. The calvarium is intact. The visualized paranasal sinuses and mastoid air cells are essentially clear." Osmel will admitted to hospitalist service for further evaluation and treatment of acute hypoxic respiratory failure secondary to COPD exacerbation associated with flu A. Allergies No Known Allergies Allergy (Unverified 05/12/16 03:25) - Past Medical/Surgical History -: Bronchitis -: Thyroid disorder -: Brain implants - Social History Smoking Status: Current every day smoker Alcohol use: No CD- Drugs: No Review of Systems General: Other (headache) Respiratory: Cough Neurological: Other (dizziness) Physical Examination - Physical Exam General: Alert, In no apparent distress, Oriented x3 HEENT: Atraumatic, Other (impaired hearing) Neck: Supple, 2+ carotid pulse no bruit Respiratory: Clear to auscultation bilaterally, Diminished (left lower lobe), Rhonchi/gurgles Cardiovascular: Normal pulses, Regular rate/rhythm, Normal S1 S2 Capillary refill: <2 Seconds Gastrointestinal: Normal bowel sounds, Distended (obese) Musculoskeletal: No clubbing Integumentary: No rashes Neurological: Abnormal speech (d/t impaired hearing) - Studies Microbiology Data (last 24 hrs): 11/26/24 12:34 Throat Group A Streptococcus Rapid Screen - Final 11/26/24 12:34 Nasopharnyx Influenza Type A Antigen Screen - Final 11/26/24 12:34 Nasopharnyx Influenza Type B Antigen Screen - Final Assessment and Plan - Plan Assessment and plan Acute hypoxic respiratory failure secondary to COPD exacerbation Influenza A Cough -Chest x-ray report "No acute intrathoracic abnormalities although there is elevation of the right hemidiaphragm which may relate to under aeration." -COVID and strep negative -Steroid daily -Tamiflu -DuoNebs -oxygen protocol -robitussin/tessalon perle Headache Hypertensive - Head CT report " No evidence of hydrocephalus, intracranial hemorrhage, or extra-axial fluid collection. Chronic changes of bifrontal parasagittal encephalomalacia, and overlying frontal calvarium hardware fixation, with defect along the cribriform plate communicating with the cranialized frontal sinuses most inferiorly, stable. Patchy opacification within the anterior ethmoidal air cells bilaterally, also previously seen. Small focus of probable encephalomalacia along the right anterior temporal pole, also appears to be chronic. Elsewhere, the brain is normal in morphology. The calvarium is intact. The visualized paranasal sinuses and mastoid air cells are essentially clear." -BP 158 / 104 -Motrin and tylenol in the ED Thyroid disease -continue home medications DVT ppx Full code LOS 2 days Discharge Plan: Home Plan to discharge in: 48 Hours - Advance Directives Does patient have a Living Will: No Does patient have a Durable POA for Healthcare: No
[2024-11-26] MEDS ORDERED: ACETAMINOPHEN 325 MG TABLET PO PRN (16:12)
[2024-11-26] MEDS ORDERED: BENZONATATE 100 MG CAP PO PRN (16:25)
[2024-11-26] MEDS: IPRATROPIUM BROM 0.5MG/2.5ML NEB SCH (22:10)
[2024-11-26] MEDS: ALBUTEROL 2.5 MG/3 ML NEB SOL NEB SCH (22:10)
[2024-11-26] MEDS: METHYLPREDNISOLONE 40 MG INJ IV SCH (22:32)
[2024-11-26] MEDS: GUAIFENESIN/CODEINE 5ML UCUP PO PRN (22:32)
[2024-11-26 22:59] LABS: Absolute Lymphocytes (CBC) 0.6 K/uL (0.7-4.9); Absolute Monocytes 0.1 K/uL (0.1-1.3); Absolute Neutrophil 4.4 K/uL (1.8-8.0); Basophils % 0.7 % (0-1.3); Eosinophils % 0.2 % (0-4.4); Hemoglobin 16.7 g/dL (13.6-17.9); Lymphocytes % 11.5 % (15.3-44.8); MCH 28.9 pg (27.0-35.0); MCHC 33.4 g/dL (32.0-36.0); MCV 86.5 fL (80-100); MPV 7.3 fL (7.6-11.3); Monocytes % 1.7 % (3.3-12.3); Neutrophils % 85.9 % (41.7-73.7); Nucleated Red Blood Cells % 0.3 % (0-0); Platelets 193 thou/uL (152-406); RBC Red Blood Cell Count 5.78 M/uL (4.33-5.43); Red Cell Distribution Width 13.3 % (12.1-15.2)
[2024-11-26 23:15] LABS: Magnesium 2.1 mg/dL (1.6-2.4); Phosphorus 2.1 mg/dL (2.5-4.9)
[2024-11-26 23:51] LABS: Band Neutrophils 21 % (0-1); Blood Morphology Comment NOT SEEN (NOT SEEN); Differential Total Cells Count 100; Lymphocytes 5 % (15-42); Monocytes 1 % (0-10); Platelet Estimate ADEQ; Reactive Lymphocytes 8 %; Segmented Neutrophils 65 % (40-80)
[2024-11-27 06:30] LABS: Absolute Lymphocytes (CBC) 0.5 K/uL (0.7-4.9); Absolute Monocytes 0.1 K/uL (0.1-1.3); Absolute Neutrophil 3.1 K/uL (1.8-8.0); Basophils % 0.3 % (0-1.3); Hematocrit 50.2 % (39.6-49.0); Hemoglobin 16.7 g/dL (13.6-17.9); Lymphocytes % 13.6 % (15.3-44.8); MCH 29.1 pg (27.0-35.0); MCHC 33.3 g/dL (32.0-36.0); MCV 87.2 fL (80-100); MPV 7.3 fL (7.6-11.3); Neutrophils % 84.1 % (41.7-73.7); Nucleated Red Blood Cells % 0.4 % (0-0); Platelets 196 thou/uL (152-406); RBC Red Blood Cell Count 5.75 M/uL (4.33-5.43); Red Cell Distribution Width 13.5 % (12.1-15.2)
[2024-11-27 06:48] LABS: Anion Gap 8.4 mEq/L (5.0-15.0); Phosphorus 2.1 mg/dL (2.5-4.9); Potassium 4.4 mEq/L (3.5-5.1)
[2024-11-27] MEDS ORDERED: METHYLPREDNISOLONE 40 MG INJ IV SCH (07:00)
[2024-11-27] MEDS ORDERED: FLU (Fluarix Triv) TS24-25(6MOS UP)/PF 45 MCG/0.5 ML Syringe IM ONE (08:00)
[2024-11-27] MEDS: POTASS/SODIUM PHOSPHATE 1 PKT POWD.PACK PO SCH (08:24)
[2024-11-27] MEDS: OSELTAMIVIR 75 MG CAP PO SCH (08:24)
--- NOTE | 2024-11-27 09:33 | P.PN ---
Date of Service: 11/27/24 Subjective Continues to feel unwell audible wheezes on 4 LNC ROS 10 point ROS as noted above, otherwise negative Physical Exam General: Alert and Oriented x3, NAD HEENT: Atraumatic, Other (impaired hearing) Neck: Supple, 2+ carotid pulse no bruit Respiratory: Clear to auscultation bilaterally, Diminished (left lower lobe), Rhonchi/gurgles/Wheezing, 4 LNC Cardiovascular: Normal pulses, mild tachycardia, Normal S1 S2 Capillary refill: <2 Seconds Gastrointestinal: Normal bowel sounds, nontender, Distended (obese) Musculoskeletal: No clubbing Integumentary: No rashes Neurological: Abnormal speech (d/t impaired hearing) Vitals Reviewed Problem list Acute hypoxic respiratory failure secondary to COPD exacerbation Influenza A Cough Headache Hypertensive Thyroid disease Assessment and Plan Acute hypoxic respiratory failure secondary to COPD exacerbation Influenza A Cough -Chest x-ray report "No acute intrathoracic abnormalities although there is elevation of the right hemidiaphragm which may relate to under aeration." -COVID and strep negative -Steroid daily -Tamiflu -DuoNebs -oxygen protocol, on 4 LNC -robitussin/tessalon perle -Vitamin D in the AM Headache Hypertensive - Head CT report " No evidence of hydrocephalus, intracranial hemorrhage, or extra-axial fluid collection. Chronic changes of bifrontal parasagittal encephal omalacia, and overlying frontal calvarium hardware fixation, with defect along the cribriform plate communicating with the cranialized frontal sinuses most inferiorly, stable. Patchy opacification within the anterior ethmoidal air cells bilaterally, also previously seen. Small focus of probable encephalomalacia along the right anterior temporal pole, also appears to be chronic. Elsewhere, the brain is normal in morphology. The calvarium is intact. The visualized paranasal sinuses and mastoid air cells are essentially clear." -BP 135/81- improved -Motrin and tylenol in the ED Thyroid disease -No home medications -TSH/Free T4 in the AM DVT ppx lovenox Full code LOS 2 days Discharge Plan: Home Plan to discharge in: 48 Hours
[2024-11-27] MEDS: ENOXAPARIN 40 MG/0.4 ML SQ SCH (11:45)
[2024-11-28 07:21] LABS: Absolute Lymphocytes (CBC) 0.7 K/uL (0.7-4.9); Absolute Monocytes 0.5 K/uL (0.1-1.3); Absolute Neutrophil 14.5 K/uL (1.8-8.0); Basophils % 0.2 % (0-1.3); Hematocrit 49.7 % (39.6-49.0); Hemoglobin 16.8 g/dL (13.6-17.9); Lymphocytes % 4.7 % (15.3-44.8); MCH 29.3 pg (27.0-35.0); MCHC 33.9 g/dL (32.0-36.0); MCV 86.3 fL (80-100); MPV 7.5 fL (7.6-11.3); Monocytes % 3.2 % (3.3-12.3); Neutrophils % 91.9 % (41.7-73.7); Nucleated Red Blood Cells % 0.1 % (0-0); Platelets 243 thou/uL (152-406); RBC Red Blood Cell Count 5.76 M/uL (4.33-5.43); Red Cell Distribution Width 13.4 % (12.1-15.2)
[2024-11-28 08:00] LABS: Anion Gap 6.8 mEq/L (5.0-15.0); Magnesium 2.1 mg/dL (1.6-2.4); Phosphorus 2.5 mg/dL (2.5-4.9); Potassium 4.8 mEq/L (3.5-5.1); Thyroid Stimulating Hormone 0.328 uIU/mL (0.358-3.740)
[2024-11-28 09:06] LABS: Band Neutrophils 1 % (0-1); Blood Morphology Comment NOT SEEN (NOT SEEN); Differential Total Cells Count 100; Lymphocytes 5 % (15-42); Monocytes 1 % (0-10); Platelet Estimate ADEQ; Segmented Neutrophils 92 % (40-80)
--- NOTE | 2024-11-28 13:28 | P.PN ---
Date of Service: 11/28/24 Subjective Improving some from yesterday Tolerating nasal cannula ROS 10 point ROS as noted above, otherwise negative Physical Exam General: Alert and Oriented x3, NAD HEENT: Atraumatic, Other (impaired hearing) Neck: Supple, 2+ carotid pulse no bruit Respiratory: Clear to auscultation bilaterally, Diminished (left lower lobe), Rhonchi/gurgles/Wheezing, 4 LNC Cardiovascular: Normal pulses, mild tachycardia, Normal S1 S2 Capillary refill: <2 Seconds Gastrointestinal: Normal bowel sounds, nontender, Distended (obese) Musculoskeletal: No clubbing Integumentary: No rashes Neurological: Abnormal speech (d/t impaired hearing) Vitals Reviewed Problem list Acute hypoxic respiratory failure secondary to COPD exacerbation Influenza A Cough Headache Hypertensive Thyroid disease Assessment and Plan Acute hypoxic respiratory failure secondary to COPD exacerbation Influenza A Cough -Chest x-ray report "No acute intrathoracic abnormalities although there is elevation of the right hemidiaphragm which may relate to under aeration." -COVID and strep negative -Steroid daily -Tamiflu -DuoNebs -oxygen protocol, on 4 LNC -robitussin/tessalon perle -Vitamin D in the AM -Pulmonary consult Headache Hypertensive -CT head negative for acute findings -Improved Thyroid disease -No home medications -TSH/Free T4 in the AM DVT ppx lovenox Full code LOS 2 days Discharge Plan: Home Plan to discharge in: 48 Hours
[2024-11-28] MEDS: NICOTINE 21 MG/PAT TD SCH (14:47)
[2024-11-28 16:10] VITALS: BMI 38.1
[2024-11-28] MEDS: predniSONE 10 MG TAB PO SCH (20:54)
[2024-11-29 06:44] LABS: Absolute Lymphocytes (CBC) 1.9 K/uL (0.7-4.9); Absolute Monocytes 0.8 K/uL (0.1-1.3); Absolute Neutrophil 13.2 K/uL (1.8-8.0); Hematocrit 49.6 % (39.6-49.0); Hemoglobin 16.4 g/dL (13.6-17.9); Lymphocytes % 11.8 % (15.3-44.8); MCH 28.9 pg (27.0-35.0); MCHC 33.1 g/dL (32.0-36.0); MCV 87.4 fL (80-100); MPV 7.4 fL (7.6-11.3); Monocytes % 4.9 % (3.3-12.3); Neutrophils % 83.3 % (41.7-73.7); Nucleated Red Blood Cells % 0.2 % (0-0); Platelets 257 thou/uL (152-406); RBC Red Blood Cell Count 5.67 M/uL (4.33-5.43); Red Cell Distribution Width 13.4 % (12.1-15.2)
[2024-11-29 07:03] LABS: Anion Gap 5.1 mEq/L (5.0-15.0); Magnesium 1.8 mg/dL (1.6-2.4); Phosphorus 2.3 mg/dL (2.5-4.9); Potassium 4.1 mEq/L (3.5-5.1)
--- NOTE | 2024-11-29 08:28 | P.CNS ---
Date of Consult: 11/29/24 Reason for Consult: Stable underlying COPD Chief Complaint: Acute hypoxic respiratory failure secondary to COPD exacerbation History of Present Illness: Patient is 49 years of age he works at [employer] has been sick about 3 to 4 days complaining of worsening shortness of breath coughing headache dizziness and is an active smoker to the hospital with presumed COPD exacerbation positive for influenza A currently doing better no prior history of COPD Allergies No Known Allergies Allergy (Unverified 05/12/16 03:25) Home Medications: Levothyroxine [Synthroid*] 0.05 mg PO DAILY 11/28/24 Risperidone 4 mg PO BEDTIME 11/28/24 - Past Medical/Surgical History -: Bronchitis -: Thyroid disorder -: Brain implants - Social History Smoking Status: Current every day smoker Alcohol use: No CD- Drugs: No Caffeine use: No Review of Systems 10-point ROS is otherwise unremarkable Respiratory: Cough, Shortness of Breath Physical Examination Temp Pulse Resp BP Pulse Ox 97.9 F 84 20 145/83 H 92 11/29/24 04:00 11/29/24 04:00 11/29/24 04:00 11/29/24 04:00 11/29/24 04:00 General: Alert, Oriented x3 Respiratory: Clear to auscultation bilaterally, Diminished Cardiovascular: No edema, Regular rate/rhythm, Normal S1 S2 Gastrointestinal: Normal bowel sounds, Soft and benign - Problems (1) COPD exacerbation Current Visit: Yes Status: Acute Plan: Patient is 49 years of age admitted with worsening dyspnea cough congestion for the past 3 days I suspect he has underlying COPD is an active smoker some brain implant patient's white count is elevated history is unremarkable x-ray is clear elevated right hemidiaphragm patient is on 1-1/2 L of nasal cannula oxygen patient is on low-dose prednisone c add p.o. Augmentin
[2024-11-29] MEDS: MAGNESIUM SULFATE 1 gm IVPB 1 GM/100 ML BAG IV ONE (09:05)
[2024-11-29] MEDS: HYDRALAZINE HCL 20 MG/ML VIAL IV PRN (09:05)
[2024-11-29] MEDS: POTASS/SODIUM PHOSPHATE 1 PKT POWD.PACK PO SCH (09:05)
[2024-11-29] MEDS: AMOX/K CLAV 875 MG TAB PO SCH (09:05)
--- NOTE | 2024-11-29 11:49 | P.PN ---
Date of Service: 11/29/24 Subjective Improving some from yesterday Tolerating nasal cannula-Still attempting to wean ROS 10 point ROS as noted above, otherwise negative Physical Exam General: Alert and Oriented x3, NAD HEENT: Atraumatic, Other (impaired hearing) Neck: Supple, 2+ carotid pulse no bruit Respiratory: Clear to auscultation bilaterally, Diminished (left lower lobe), Rhonchi/gurgles/Wheezing, 2 LNC Cardiovascular: Normal pulses, mild tachycardia, Normal S1 S2 Capillary refill: <2 Seconds Gastrointestinal: Normal bowel sounds, nontender, Distended (obese) Musculoskeletal: No clubbing Integumentary: No rashes Neurological: Abnormal speech (d/t impaired hearing) Vitals Reviewed Problem list Acute hypoxic respiratory failure secondary to COPD exacerbation Influenza A Cough Headache Hypertensive Thyroid disease Assessment and Plan Acute hypoxic respiratory failure secondary to COPD exacerbation Influenza A Cough -Chest x-ray report "No acute intrathoracic abnormalities although there is elevation of the right hemidiaphragm which may relate to under aeration." -COVID and strep negative -Prednisone 10mg PO BID -Tamiflu -Added augmentin 11/29 -DuoNebs -oxygen protocol, on 2 LNC -robitussin/tessalon perle -Pulmonary consult Headache Hypertensive -CT head negative for acute findings -Improved Thyroid disease -No home medications -TSH/Free T4 in the AM DVT ppx lovenox Full code LOS 2 days
[2024-11-30 06:31] LABS: Absolute Lymphocytes (CBC) 1.9 K/uL (0.7-4.9); Absolute Monocytes 0.6 K/uL (0.1-1.3); Absolute Neutrophil 7.1 K/uL (1.8-8.0); Basophils % 0.2 % (0-1.3); Hematocrit 48.2 % (39.6-49.0); Hemoglobin 16.1 g/dL (13.6-17.9); MCH 28.9 pg (27.0-35.0); MCHC 33.5 g/dL (32.0-36.0); MCV 86.4 fL (80-100); MPV 7.2 fL (7.6-11.3); Monocytes % 6.7 % (3.3-12.3); Neutrophils % 73.1 % (41.7-73.7); Nucleated Red Blood Cells % 0.1 % (0-0); Platelets 208 thou/uL (152-406); RBC Red Blood Cell Count 5.58 M/uL (4.33-5.43); Red Cell Distribution Width 13.4 % (12.1-15.2)
[2024-11-30 06:43] LABS: Anion Gap 9.3 mEq/L (5.0-15.0); Magnesium 2.1 mg/dL (1.6-2.4); Phosphorus 2.5 mg/dL (2.5-4.9); Potassium 4.3 mEq/L (3.5-5.1)
--- NOTE | 2024-11-30 09:10 | P.PN ---
Date of Service: 11/30/24 Subjective Improving some from yesterday Tolerating nasal cannula-Still attempting to wean No acute events overnight ROS 10 point ROS as noted above, otherwise negative Physical Exam General: Alert and Oriented x3, NAD HEENT: Atraumatic, Other (impaired hearing) Neck: Supple, 2+ carotid pulse no bruit Respiratory: Clear to auscultation bilaterally, Diminished (left lower lobe), Rhonchi/gurgles/Wheezing, 2 LNC Cardiovascular: Normal pulses, mild tachycardia, Normal S1 S2 Capillary refill: <2 Seconds Gastrointestinal: Normal bowel sounds, nontender, Distended (obese) Musculoskeletal: No clubbing Integumentary: No rashes Neurological: Abnormal speech (d/t impaired hearing) Vitals Reviewed Problem list Acute hypoxic respiratory failure secondary to COPD exacerbation Influenza A Cough Headache Hypertensive Thyroid disease Assessment and Plan Acute hypoxic respiratory failure secondary to COPD exacerbation Influenza A Cough -Chest x-ray report "No acute intrathoracic abnormalities although there is elevation of the right hemidiaphragm which may relate to under aeration." -COVID and strep negative -Prednisone 10mg PO BID -Tamiflu -Added augmentin 11/29 -DuoNebs -oxygen protocol, on 1L NC -robitussin/tessalon perle -Pulmonary following -slowly improving Headache Hypertensive -CT head negative for acute findings -Improved Thyroid disease -No home medications -TSH/Free T4 in the AM DVT ppx lovenox Full code LOS 2 days
[2024-11-30] MEDS: POTASS/SODIUM PHOSPHATE 1 PKT POWD.PACK PO SCH (10:35)
--- NOTE | 2024-11-30 12:10 | EKG ---
Test Date: 2024-11-26 Test Time: 16:45:39 Testing And Regulating Technician: MEASUREMENT RESULTS: Intervals: Rate: 78 SC: 188 QRSD: 84 QT: 346 QTc: 394 [place]: P: 85 SC: 188 QRS: -71 T: 37 INTERPRETIVE STATEMENTS: Normal sinus rhythm Pulmonary disease pattern Left anterior fascicular block Septal infarct, age undetermined Abnormal ECG Compared to ECG 08/06/2011 16:41:45 Left anterior fascicular block now present Myocardial infarct finding now present Electronically Signed On 11-30-24 12:07:54 SCANNER SUPERVISOR by Brendan Elam
[2024-12-01 07:53] LABS: Absolute Lymphocytes (CBC) 2.1 K/uL (0.7-4.9); Absolute Monocytes 0.9 K/uL (0.1-1.3); Absolute Neutrophil 8.1 K/uL (1.8-8.0); Basophils % 0.2 % (0-1.3); Hematocrit 51.3 % (39.6-49.0); Hemoglobin 17.3 g/dL (13.6-17.9); Lymphocytes % 19.1 % (15.3-44.8); MCH 28.8 pg (27.0-35.0); MCHC 33.8 g/dL (32.0-36.0); MCV 85.3 fL (80-100); MPV 7.6 fL (7.6-11.3); Monocytes % 8.4 % (3.3-12.3); Neutrophils % 72.3 % (41.7-73.7); Nucleated Red Blood Cells % 0.4 % (0-0); Platelets 222 thou/uL (152-406); RBC Red Blood Cell Count 6.01 M/uL (4.33-5.43); Red Cell Distribution Width 13.3 % (12.1-15.2)
[2024-12-01 08:06] LABS: Anion Gap 7.3 mEq/L (5.0-15.0); Magnesium 2.2 mg/dL (1.6-2.4); Phosphorus 2.4 mg/dL (2.5-4.9); Potassium 4.3 mEq/L (3.5-5.1)
[2024-12-01] MEDS: POTASS/SODIUM PHOSPHATE 1 PKT POWD.PACK PO SCH (09:25)
--- NOTE | 2024-12-01 10:10 | P.DS ---
Admission Date: 11/26/24 Discharge Date: 12/01/24 Disposition: ROUTINE DISCHARGE Discharge Condition: GOOD Reason for Admission: Acute hypoxic respiratory failure secondary to COPD exacerbation Brief History of Present Illness: Osmel Lzu is a 49-year-old male with past medical history of hypothyroidism and bronchitis who presents to the ED with chief complaint of cough, headache, and dizziness for the last 3 days. He reports he has a doctor is not treated for COPD, he is not familiar with the terminology COPD. On evaluation he has increased work of breathing, on 2 L of nasal cannula left lower lobe diminished with diffuse rhonchi, reports dry cough and positive for influenza A. Osmel will admitted to hospitalist service for further evaluation and treatment of acute hypoxic respiratory failure secondary to COPD exacerbation associated with flu A. Hospital Course: Problem list Acute hypoxic respiratory failure secondary to COPD exacerbation Influenza A Cough Headache Hypertensive Thyroid disease Patient admitted to the hospital for influenza, acute hypoxic respiratory failure, suspect underlying COPD. He has been smoking cigarettes heavily recently. He was requiring nasal cannula oxygen but has now been weaned off. He is improving, in no distress, tolerating diet and is anxious to be discharged. He was seen by pulmonology who recommended addition of prednisone, Augmentin to the Tamiflu which will be sent to his pharmacy. He was counseled extensively on the need to quit smoking. Patient should follow-up with his primary care doctor in 1 to 2 weeks Take Tylenol as needed for fevers Make sure you take the Tamiflu, Augmentin and prednisone as prescribed, we have also sent a cough medicine to your pharmacy. Vital Signs/Physical Exam: Temp Pulse Resp BP Pulse Ox 96.9 F 87 18 155/69 H 96 12/01/24 04:00 12/01/24 04:00 12/01/24 04:00 12/01/24 04:00 12/01/24 04:00 General: Alert, In no apparent distress, Oriented x3 HEENT: Atraumatic, PERRLA Neck: Supple, JVD not distended Respiratory: Diminished, Expiratory wheezes (mild) Cardiovascular: Regular rate/rhythm, Normal S1 S2 Gastrointestinal: Normal bowel sounds, No tenderness Musculoskeletal: No tenderness Integumentary: No rashes Neurological: Normal speech, Normal tone, Normal affect Laboratory Data at Discharge: WBC 11.20 thou/uL (4.3-10.9) H 12/01/24 07:15 Hgb 17.3 g/dL (13.6-17.9) 12/01/24 07:15 Hct 51.3 % (39.6-49.0) H 12/01/24 07:15 Plt Count 222 thou/uL (152-406) 12/01/24 07:15 Sodium 137 mEq/L (136-145) 12/01/24 07:15 Potassium 4.3 mEq/L (3.5-5.1) 12/01/24 07:15 BUN 15 mg/dL (7-18) 12/01/24 07:15 Creatinine 0.73 mg/dL (0.70-1.30) 12/01/24 07:15 Glucose 92 mg/dL (74-106) 12/01/24 07:15 Phosphorus 2.4 mg/dL (2.5-4.9) L 12/01/24 07:15 Magnesium 2.2 mg/dL (1.6-2.4) 12/01/24 07:15 Home Medications: Levothyroxine [Synthroid*] 0.05 mg PO DAILY 11/28/24 Risperidone 4 mg PO BEDTIME 11/28/24 Albuterol Inhaler [Ventolin Inhaler*] 2 puff IH Q6H PRN #1 inh 12/01/24 Amox/Clavulanate [Augmentin 875-125 Tab*] 875 mg PO BID 4 Days #8 tab 12/01/24 Benzonatate [Tessalon Perle*] 100 mg PO TID PRN #25 cap 12/01/24 Oseltamivir [Tamiflu*] 75 mg PO BID 1 Days #2 cap 12/01/24 predniSONE [Deltasone*] 10 mg PO BID 4 Days #8 tab 12/01/24 New Medications: Amox/Clavulanate [Augmentin 875-125 Tab*] 875 mg PO BID 4 Days #8 tab predniSONE [Deltasone*] 10 mg PO BID 4 Days #8 tab Benzonatate [Tessalon Perle*] 100 mg PO TID PRN #25 cap PRN Reason: Cough Albuterol Inhaler [Ventolin Inhaler*] 2 puff IH Q6H PRN #1 inh PRN Reason: Shortness Of Breath Physician Discharge Instructions: Patient admitted to the hospital for influenza, acute hypoxic respiratory failure, suspect underlying COPD. He has been smoking cigarettes heavily recently. He was requiring nasal cannula oxygen but has now been weaned off. He is improving, in no distress, tolerating diet and is anxious to be discharged. He was seen by pulmonology who recommended addition of prednisone, Augmentin to the Tamiflu which will be sent to his pharmacy. He was counseled extensively on the need to quit smoking. Patient should follow-up with his primary care doctor in 1 to 2 weeks Take Tylenol as needed for fevers Make sure you take the Tamiflu, Augmentin and prednisone as prescribed, we have also sent a cough medicine to your pharmacy. Diet: Regular Activity: Ad cleopatra Followup: Nory Velasco MD [Primary Care Provider] - 1 Week Time spent managing pt's care (in minutes): 41
[2024-12-01 11:12] LABS: Atypical Lymphocytes 1 %; Differential Total Cells Count 100; Lymphocytes 16 % (15-42); Metamyelocytes 1 % (0-0); Monocytes 7 % (0-10); Segmented Neutrophils 75 % (40-80)
[2024-12-01 11:13] LABS: Blood Morphology Comment NOT SEEN (NOT SEEN); Platelet Estimate ADEQ
[2024-12-01 13:11] VITALS: BP 169/98; TEMP 98.1
[2024-12-01 13:52] VITALS: O2SAT 94
== END 2024-12-01 15:14 | disposition home or self-care (01) | DRG 193 ==
LOC: ER 11:47 → ERHOLD 16:12 → 4TH 16:59
PROVIDERS: ADMIT Internal Medicine; ATTEND Hospitalist
DX: J10.1 Influenza due to other identified influenza virus with other respiratory manifestations (principal); J96.01 Acute respiratory failure with hypoxia; J44.1 Chronic obstructive pulmonary disease with (acute) exacerbation; E03.9 Hypothyroidism, unspecified; I10 Essential (primary) hypertension
CPT/HCPCS: 36415; 70450; 71045; 80048; 82306; 83735; 84100; 84439; 84443; 85025; 87070; 87081; 87804; 87811; 93005; 94640; 96361; 96374; 99285; J0360; J1650; J2919; J3475; J7040; J7512; J7613; J7614; J7644

== ENCOUNTER 2024-12-09 09:10 | Emergency (ER) | payer OTHER ==
[2024-12-09] MEDS ORDERED: ALBUTEROL 2.5 MG/3 ML NEB SOL ONE (09:52)
[2024-12-09] MEDS ORDERED: IPRATROPIUM BROM 0.5MG/2.5ML ONE (09:53)
[2024-12-09] MEDS ORDERED: MECLIZINE HCL 12.5 MG TAB ONE (09:53)
[2024-12-09 10:31] LABS: ALT/SGPT 43 U/L (16-61); AST/SGOT 13 U/L (15-37); Albumin 3.1 g/dL (3.4-5.0); Albumin/Globulin Ratio 0.9 (1.1-1.8); Alkaline Phosphatase 64 U/L (45-117); Anion Gap 7.5 mEq/L (5.0-15.0); BUN Blood Urea Nitrogen 11 mg/dL (7-18); Bicarbonate 28 mEq/L (21-32); Bilirubin Total 0.4 mg/dL (0.2-1.0); Globulin 3.6 g/dL (2.3-3.5); Glomerular Filtration Rate 109 ml/min (=/>90); Glucose Level 86 mg/dL (74-106); Potassium 4.5 mEq/L (3.5-5.1); Protein, Total 6.7 g/dL (6.4-8.2); Sodium Level 140 mEq/L (136-145); Troponin High Sensitivity 6.9 pg/mL (<58.9)
[2024-12-09 10:41] LABS: Absolute Basophils 0.1 K/uL (0-0.5); Absolute Eosinophils 0.2 K/uL (0-0.5); Absolute Lymphocytes (CBC) 2.3 K/uL (0.7-4.9); Absolute Monocytes 0.8 K/uL (0.1-1.3); Absolute Neutrophil 10.5 K/uL (1.8-8.0); Basophils % 0.5 % (0-1.3); Eosinophils % 1.5 % (0-4.4); Hematocrit 44.9 % (39.6-49.0); Hemoglobin 15.2 g/dL (13.6-17.9); Lymphocytes % 16.3 % (15.3-44.8); MCH 28.9 pg (27.0-35.0); MCHC 33.8 g/dL (32.0-36.0); MCV 85.3 fL (80-100); MPV 7.3 fL (7.6-11.3); Monocytes % 5.5 % (3.3-12.3); Neutrophils % 76.2 % (41.7-73.7); Platelets 326 thou/uL (152-406); RBC Red Blood Cell Count 5.26 M/uL (4.33-5.43); Red Cell Distribution Width 13.1 % (12.1-15.2)
[2024-12-09 10:48] LABS: Bilirubin Direct < 0.2 mg/dL (0-0.2); Bilirubin Indirect, Calculated 0.2 mg/dL (0.2-0.8)
--- NOTE | 2024-12-09 10:51 | RAD REPORT ---
Procedure: Chest Single View HISTORY: Cough COMPARISON: November 26, 2024 FINDINGS: The lungs appear clear of acute infiltrate. No significant pleural effusion noted. The heart is normal size. IMPRESSION: No acute abnormality is displayed.
--- NOTE | 2024-12-09 12:23 | EDPHYS ---
Physician Documentation [facility] Name: Osmel Luz Age: 49 yrs Sex: Male : 1975 Arrival Date: 12/09/2024 Time: 09:10 Bed 6 Private MD: ED Physician Javy Navarro HPI: 12/09 10:24 This 49 yrs old Male presents to ER via Ambulatory with complaints of Dizziness. rt 10:24 Patient presents to the ED with cough, dizziness. Patient states that he was dizzy rt about 5 days ago, has significantly improved, is only mild at this time. Patient reports an ongoing cough but denies any shortness of breath. Denies other acute complaints at this time, symptoms are mild in severity, no other aggravating or alleviating factors.. Historical: - Allergies: 09:35 No Known Allergies; hb - PMHx: 09:35 Bronchitis; Thyroid dysfuntion; hb - PSHx: 09:35 Bladder; hb - Immunization history:: Adult Immunizations up to date. - Infectious Disease History:: Denies. - Social history:: Smoking status: Patient/guardian denies using tobacco. - Family history:: not pertinent. ROS: 10:24 Constitutional: Negative for fever, chills, and weight loss, Cardiovascular: Negative rt for chest pain, palpitations, and edema, Abdomen/GI: Negative for abdominal pain, nausea, vomiting, diarrhea, and constipation, MS/Extremity: Negative for injury and deformity, Skin: Negative for injury, rash, and discoloration, 10:24 Respiratory: Positive for cough, Negative for shortness of breath, 10:24 Neuro: Positive for dizziness, Negative for loss of consciousness, Exam: 10:24 Constitutional: This is a well developed, well nourished patient who is awake, alert, rt and in no acute distress. Head/Face: Normocephalic, atraumatic. Chest/axilla: Normal chest wall appearance and motion. Nontender with no deformity. No lesions are appreciated. Cardiovascular: Regular rate and rhythm with a normal S1 and S2. No gallops, murmurs, or rubs. Normal PMI, no JVD. No pulse deficits. Abdomen/GI: Soft, non-tender, with normal bowel sounds. No distension or tympany. No guarding or rebound. No evidence of tenderness throughout. Skin: Warm, dry with normal turgor. Normal color with no rashes, no lesions, and no evidence of cellulitis. MS/ Extremity: Pulses equal, no cyanosis. Neurovascular intact. Full, normal range of motion. 10:24 ECG was reviewed by the Attending Physician. 10:24 Respiratory: Faint wheezes heard on all lung jolley, no respiratory distress, Vital Signs: 09:34 BP 153 / 97; Pulse 78; Resp 18; Temp 98.3; Pulse Ox 97% ; Weight 77.11 kg; Height 5 ft. hb 3 in. ; Pain 0/10; 11:02 BP 132 / 90; Pulse 55; Resp 16; Pulse Ox 100% ; ko1 12:00 BP 128 / 87; Pulse 56; Resp 16; Pulse Ox 100% ; me1 09:34 Body Mass Index 30.11 (77.11 kg, 160.02 cm) hb 09:34 Pain Scale: Adult hb MDM: 09:39 Medical Screening Exam initiated rt 12:35 Differential diagnosis: COPD, near syncope, dysrhythmia, dehydration. Data reviewed: rt vital signs, nurses notes, lab test result(s), EKG, radiologic studies. Consideration of Admission/Observation Escalation of care including admission/observation considered. Workup benign, vital signs stable, no indications for admission at this time.. Independent interpretation of the following test(s) in the Emergency Department X-Ray: My interpretation is No infiltrate seen on interpretation of x-ray images. Test considered but Not performed: CT: No head trauma, no focal neurodeficits, patient had a recent change CT scan, do not believe that repeat CT scan is indicated at this time.. Care significantly affected by the following chronic conditions: Chronic Obstructive Pulmonary Disease. Counseling: I had a detailed discussion with the patient and/or guardian regarding the historical points, exam findings, and any diagnostic results supporting the discharge/admit diagnosis, lab results, radiology results, the need for outpatient follow up. Response to treatment: the patient's symptoms have mildly improved after treatment. 12/09 09:48 Order name: Basic Metabolic Panel; Complete Time: 10:50 rt 12/09 09:48 Order name: CBC with Diff; Complete Time: 10:50 rt 12/09 09:48 Order name: LFT's; Complete Time: 10:50 rt 12/09 09:48 Order name: Troponin HS; Complete Time: 10:50 rt 12/09 09:48 Order name: XRAY Chest (1 view); Complete Time: 10:56 rt 12/09 09:48 Order name: EKG; Complete Time: 09:48 rt 12/09 09:48 Order name: Cardiac monitoring; Complete Time: 09:49 rt 12/09 09:48 Order name: EKG - Nurse/Tech; Complete Time: 10:14 rt 12/09 09:48 Order name: IV Saline Lock; Complete Time: 09:57 rt 12/09 09:48 Order name: Labs collected and sent; Complete Time: 09:57 rt 12/09 09:48 Order name: O2 Per Protocol; Complete Time: 09:49 rt 12/09 09:48 Order name: O2 Sat Monitoring; Complete Time: 09:49 rt EC:24 Rate is 70 beats/min. Rhythm is regular, Normal Sinus Rhythm with No ectopy. QRS [place] rt is Normal. MO interval is normal. QRS interval is normal. QT interval is normal. No Q waves. T waves are Normal. No ST changes noted. Interpreted by me. Administered Medications: 09:57 Drug: Albuterol Inhalation 2.5 mg Inhalation once Route: Inhalation; ko1 10:13 Follow up: Response: No adverse reaction; Wheezing diminished ko1 09:57 Drug: Ipratropium Inhalation Aerosol 0.5 mg Inhalation once Route: Inhalation; ko1 10:13 Follow up: Response: No adverse reaction; Wheezing diminished ko1 09:57 Drug: Meclizine PO 50 mg PO once Route: PO; ko1 12:53 Follow up: Response: No adverse reaction me1 Disposition Summary: 12/09/24 12:22 Discharge Ordered Notes: Location: Home rt Problem: new rt Symptoms: have improved rt Condition: Stable rt Diagnosis - COPD/ Chronic obstructive pulmonary disease, unspecified rt - Dizziness and giddiness rt Followup: rt - With: Private Physician - When: 2 - 3 days - Reason: Discharge Instructions: - Discharge Summary Sheet rt - Chronic Obstructive Pulmonary Disease rt - Dizziness rt Forms: - Medication Reconciliation Form rt - Antibiotic Education rt - Prescription Opioid Use rt - Patient Portal Instructions rt - Leadership Thank You Letter rt Signatures: Dispatcher [employer] Emely Powell RN RN hb Oliver, Kathy, RN RN ko1 Javy Navarro MD MD rt Alycia Acevedo RN me1
--- NOTE | 2024-12-09 12:23 | ER ---
Nurse's Notes [facility] Name: Osmel Luz Age: 49 yrs Sex: Male : 1975 Arrival Date: 12/09/2024 Time: 09:10 Bed 6 Private MD: Diagnosis: COPD/ Chronic obstructive pulmonary disease, unspecified;Dizziness and giddiness Presentation: 12/09 09:34 Chief complaint: Dizziness x 5 days, cough and congestion x 3 days. Denies pain/fever. hb Coronavirus screen: Client presents with at least one sign or symptom that may indicate coronavirus-19. Provider contacted for isolation considerations. Ebola Screen: No symptoms or risks identified at this time. Initial Sepsis Screen: Does the patient meet any 2 criteria? No. Patient's initial sepsis screen is negative. Does the patient have a suspected source of infection? No. Patient's initial sepsis screen is negative. Risk Assessment: Do you want to hurt yourself or someone else? Patient reports no desire to harm self or others. Onset of symptoms was December 06, 2024. 09:34 Method Of Arrival: Ambulatory hb 09:34 Acuity: MANE 3 hb Historical: - Allergies: 09:35 No Known Allergies; hb - PMHx: 09:35 Bronchitis; Thyroid dysfuntion; hb - PSHx: 09:35 Bladder; hb - Immunization history:: Adult Immunizations up to date. - Infectious Disease History:: Denies. - Social history:: Smoking status: Patient/guardian denies using tobacco. - Family history:: not pertinent. Screenin:00 [facility] ED Fall Risk Assessment (Adult) History of falling in the last 3 months, ko1 including since admission No falls in past 3 months (0 pts) Confusion or Disorientation No (0 pts) Intoxicated or Sedated No (0 pts) Impaired Gait No (0 pts) Mobility Assist Device Used No (0 pt) Altered Elimination No (0 pt) Score/Fall Risk Level 0 - 2 = Low Risk Oriented to surroundings, Maintained a safe environment, Educated pt \T\ family on fall prevention, incl call for assistance when getting out of bed, Assessed \T\ reinforced patient's understanding of fall precautions, Provided non-skid footwear, Hourly rounding (assess needs \T\ fall precautionary measures) done. Abuse screen: Denies threats or abuse. Denies injuries from another. Nutritional screening: No deficits noted. Tuberculosis screening: No symptoms or risk factors identified. Assessment: 10:12 General: Appears in no apparent distress. Behavior is calm, cooperative, appropriate ko1 for age. Pain: Denies pain. Neuro: Reports dizziness. Cardiovascular: Reports lightheadedness. Respiratory: Breath sounds with wheezes bilaterally. GI: No deficits noted. No signs and/or symptoms were reported involving the gastrointestinal system. : No deficits noted. No signs and/or symptoms were reported regarding the genitourinary system. EENT: No deficits noted. No signs and/or symptoms were reported regarding the EENT system. Derm: No deficits noted. No signs and/or symptoms reported regarding the dermatologic system. Musculoskeletal: No deficits noted. No signs and/or symptoms reported regarding the musculoskeletal system. Vital Signs: 09:34 BP 153 / 97; Pulse 78; Resp 18; Temp 98.3; Pulse Ox 97% ; Weight 77.11 kg; Height 5 ft. hb 3 in. ; Pain 0/10; 11:02 BP 132 / 90; Pulse 55; Resp 16; Pulse Ox 100% ; ko1 12:00 BP 128 / 87; Pulse 56; Resp 16; Pulse Ox 100% ; me1 09:34 Body Mass Index 30.11 (77.11 kg, 160.02 cm) hb 09:34 Pain Scale: Adult hb ED Course: 09:13 Patient arrived in ED. im 09:14 Javy Navarro MD is Attending Physician. rt 09:34 Karen Adam, RN is Primary Nurse. ko1 09:35 Triage completed. hb 09:35 Arm band placed on. hb 09:55 Initial lab(s) drawn, by md, sent to lab. Inserted saline lock: 20 gauge in right aa5 antecubital area, using aseptic technique. Blood collected. Flushed with 10 mL NS. 09:57 Basic Metabolic Panel Sent. ko1 09:57 CBC with Diff Sent. ko1 09:57 LFT's Sent. ko1 09:57 Troponin HS Sent. ko1 10:00 Patient has correct armband on for positive identification. Bed in low position. Call ko1 light in reach. Side rails up X 1. Provided Education on: labs. Pulse ox on. NIBP on. Door closed. Noise minimized. Lights dimmed. Warm blanket given. Pillow given. 10:00 Initial Neb Treatment Given as ordered Patient was instructed and evaluated on ko1 procedure Patient tolerated procedure well without adverse effect. 10:11 Patient requests rest room assistance. ko1 10:11 Assisted to bathroom. ko1 10:12 No provider procedures requiring assistance completed. ko1 10:14 EKG done, by ED staff, reviewed by Javy Navarro MD. ko1 10:41 XRAY Chest (1 view) In Process Unspecified. EDMS 12:57 IV discontinued, intact, bleeding controlled, No redness/swelling at site. Pressure me1 dressing applied. Administered Medications: 09:57 Drug: Albuterol Inhalation 2.5 mg Inhalation once Route: Inhalation; ko1 10:13 Follow up: Response: No adverse reaction; Wheezing diminished ko1 09:57 Drug: Ipratropium Inhalation Aerosol 0.5 mg Inhalation once Route: Inhalation; ko1 10:13 Follow up: Response: No adverse reaction; Wheezing diminished ko1 09:57 Drug: Meclizine PO 50 mg PO once Route: PO; ko1 12:53 Follow up: Response: No adverse reaction me1 Medication: 10:00 VIS not applicable for this client. ko1 Outcome: 12:22 Discharge ordered by . rt 12:57 Discharged to home via wheelchair, me1 12:57 Condition: stable 12:57 Discharge instructions given to patient, Instructed on discharge instructions, follow up and referral plans. Demonstrated understanding of instructions, follow-up care, 12:57 Patient left the ED. me1 Signatures: Dispatcher [employer] [facility] Tierney Celestin RN LELA aa5 Emely Montgomery RN RN Karen Adam RN RN ko1 Javy Navarro MD MD rt Maggie Clinton Michelle, RN RN me1
[2024-12-09 14:11] VITALS: TEMP 98.3
[2024-12-09 14:17] VITALS: O2SAT 100
[2024-12-09 14:22] VITALS: BP 128/87
--- NOTE | 2024-12-13 12:43 | EKG ---
Test Date: 2024-12-09 Test Time: 10:19:16 Machine Shop Lead Man: AM MEASUREMENT RESULTS: Intervals: Rate: 70 IN: 186 QRSD: 86 QT: 370 QTc: 399 [place]: P: 58 IN: 186 QRS: -26 T: 39 INTERPRETIVE STATEMENTS: Normal sinus rhythm Normal ECG Compared to ECG 11/26/2024 16:45:39 Left anterior fascicular block no longer present Myocardial infarct finding no longer present Electronically Signed On 12-13-24 12:36:20 TEMPLATE CUTTER by Brendan Elam
== END 2024-12-09 12:57 | disposition home or self-care (01) ==
LOC: ER 09:10
DX: J44.9 Chronic obstructive pulmonary disease, unspecified (principal); R42 Dizziness and giddiness
CPT/HCPCS: 85025; 80048; 36415; 80076; 84484; 71045; 94640; 99285; J8597; J7613; J7644; 93005

== ENCOUNTER 2025-01-17 12:55 | Emergency (ER) | payer OTHER ==
--- NOTE | 2025-01-17 13:54 | RAD REPORT ---
EXAMINATION: Head Brain Wo Cont CLINICAL INDICATION: Male, 49 years old.DIZZINESS TECHNIQUE: Axial CT images from the skull base to the vertex without intravenous contrast. Coronal an d sagittal reformatted images were created from the data set. One or more of the following dose reduction techniques were used: Automated exposure control, adjustment of the mA and/or kV according to patient size, and/or iterative reconstruction. Unless otherwise specified, incidental findings do not require dedicated imaging follow-up. [id number]. COMPARISON: 11/26/2024 FINDINGS: INTRACRANIAL: No acute intracranial hemorrhage. No hydrocephalus. No mass effect or midline shift. Mi ld chronic small vessel ischemic changes.Mild cerebral atrophy. Similar bifrontal encephalomalacia. VASCULATURE: No visualized abnormalities in the arteries or dural venous sinuses. SCALP/SKULL: No calvarial fracture identified. No acute soft tissue abnormality. Frontal craniotomy. SINUSES: Scattered areas of paranasal sinus thickening. No significant mastoid fluid. IMPRESSION: No acute intracranial abnormality. No significant change from prior.
[2025-01-17 14:50] LABS: Absolute Eosinophils 0.1 K/uL (0-0.5); Absolute Lymphocytes (CBC) 1.4 K/uL (0.7-4.9); Absolute Monocytes 0.5 K/uL (0.1-1.3); Basophils % 0.3 % (0-1.3); Eosinophils % 0.9 % (0-4.4); Hematocrit 45.7 % (39.6-49.0); Hemoglobin 15.7 g/dL (13.6-17.9); Lymphocytes % 14.3 % (15.3-44.8); MCH 29.9 pg (27.0-35.0); MCHC 34.4 g/dL (32.0-36.0); MPV 7.2 fL (7.6-11.3); Monocytes % 4.6 % (3.3-12.3); Neutrophils % 79.9 % (41.7-73.7); Nucleated Red Blood Cells % 0.1 % (0-0); Platelets 289 thou/uL (152-406); RBC Red Blood Cell Count 5.25 M/uL (4.33-5.43); Red Cell Distribution Width 14.5 % (12.1-15.2)
[2025-01-17 14:58] LABS: PT Prothrombin Time 11.9 SECONDS (10.0-13.0); PTT, Activated Partial Thromb 37.9 SECONDS (24.3-36.9); Protime INR 1.05
--- NOTE | 2025-01-17 15:03 | RAD REPORT ---
EXAMINATION: MRI BRAIN WITHOUT CONTRAST CLINICAL INDICATION: Male, 49 years old. Dizziness;Syncope;Slurred speech TECHNIQUE: Multiplanar multisequence MR images of the brain were obtained without intravenous contras t. Unless otherwise specified, incidental findings do not require dedicated imaging follow-up. [id number]. COMPARISON: Same-day head CT FINDINGS: INTRACRANIAL: No acute infarct identified. No significant mass effect or midline shift.No hydrocepha teresa. Mild chronic small vessel ischemic changes.Age advanced cerebral atrophy. Similar bifrontal lobe and septal malacia. VASCULATURE: Normal signal voids in the larger intracranial arteries and dural venous sinuses. SINUSES: Trace paranasal sinus thickening.No mastoid effusions. BONE: The marrow signal pattern is within normal limits. Oral craniotomy IMPRESSION: No acute intracranial abnormality. Specifically, no evidence of acute infarct. Unchanged bifrontal lo be encephalomalacia which may reflect remote trauma.
[2025-01-17 15:10] LABS: ALT/SGPT 21 U/L (16-61); AST/SGOT 11 U/L (15-37); Albumin 3.7 g/dL (3.4-5.0); Alkaline Phosphatase 76 U/L (45-117); Anion Gap 4.7 mEq/L (5.0-15.0); BUN Blood Urea Nitrogen 9 mg/dL (7-18); Bicarbonate 30 mEq/L (21-32); Bilirubin Total 0.2 mg/dL (0.2-1.0); Globulin 3.7 g/dL (2.3-3.5); Glomerular Filtration Rate 105 ml/min (=/>90); Glucose Level 83 mg/dL (74-106); Potassium 3.7 mEq/L (3.5-5.1); Protein, Total 7.4 g/dL (6.4-8.2); Sodium Level 140 mEq/L (136-145); Troponin High Sensitivity 10.4 pg/mL (<58.9)
[2025-01-17 15:14] LABS: Bilirubin Direct < 0.2 mg/dL (0-0.2)
--- NOTE | 2025-01-17 15:27 | RAD REPORT ---
EXAM: Chest Single View HISTORY: 49 years Male syncope COMPARISON: 12/09/2024 FINDINGS: LUNGS/PLEURA: The lungs are clear. No pleural effusions or pneumothorax. No pulmonary edema. CARDIAC/MEDIASTINUM: The cardiac silhouette is within normal limits. UPPER ABDOMEN: No significant abnormality. BONES: No acute abnormality. LINES/TUBES/OTHER: N/A IMPRESSION: No evidence of acute cardiopulmonary disease. No significant change from prior.
--- NOTE | 2025-01-17 15:51 | RAD REPORT ---
EXAMINATION: Neck Angio CLINICAL INDICATION: Male, 49 years old. PAIN TECHNIQUE: Axial CT images were obtained from the aortic arch to the skull base after intravenous con trast utilizing angiographic protocol with 3D post-processing (maximum intensity projection images, volume rendered images and/or shaded surface rendered images). One or more of the following dose redu ction techniques were used: Automated exposure control, adjustment of the mA and/or kV according to patient size, and/or iterative reconstruction. Unless otherwise specified, incidental findings do not require dedicated imaging follow-up. [id number]. NASCET criteria used. Mild 0-49% stenosis Moderate 50-69% stenosis Severe 70-99% stenosis COMPARISON: No prior exam. FINDINGS: AORTA: Normal RIGHT: - CCA: Patent - ICA: Patent, medially deviated. - ECA: Patent LEFT: - CCA: Patent - ICA: Patent, medial deviated. - ECA: Patent VERTEBRAL: Patent SOFT TISSUE: Mass in the region of the left level 2 region measuring 2.5 x 1.7 cm. This is between th e left internal jugular vein and ICA This have been seen on prior imaging and is benign . . 3D images confirm these findings. IMPRESSION: No arterial dissection or stenosis identified within the neck.
--- NOTE | 2025-01-17 15:53 | RAD REPORT ---
EXAMINATION: Head angio CLINICAL INDICATION: Male, 49 years old. DIZZINESS TECHNIQUE: Axial CT images were obtained through the head after intravenous contrast utilizing angiog raphic protocol with 3D post-processing (maximum intensity projection images, volume rendered images and/or shaded surface rendered images). One or more of the following dose reduction technique s were used: Automated exposure control, adjustment of the mA and/or kV according to patient size, and/or iterative reconstruction. Unless otherwise specified, incidental findings do not require dedic ated imaging follow-up. COMPARISON: Same day head CT FINDINGS: RIGHT: ICA: Atherosclerotic calcifications but no flow limiting stenosis. GONSALO: Patent MCA: Patent BASKET WEAVER: Patent LEFT: ICA: Atherosclerotic calcifications but no flow limiting stenosis. GONSALO: Patent MCA: Patent BASKET WEAVER: Patent Vertebrobasilar: The vertebral arteries are patent. The basilar artery is normal in appearance. 3D images confirm these findings. IMPRESSION: No occlusion, aneurysm, or hemodynamically significant stenosis identified.
[2025-01-17] MEDS ORDERED: NA CHLORIDE 0.9% 1,000 ML ONE (16:11)
--- NOTE | 2025-01-17 16:50 | ER ---
Nurse's Notes [facility] Name: Osmel Luz Age: 49 yrs Sex: Male : 1975 Arrival Date: 01/17/2025 Time: 12:55 Bed DX4 Private MD: Diagnosis: Dizziness and giddiness;Syncope Presentation: 01/17 13:19 Chief complaint: Parent and/or Guardian states: Pt was at work today, went and laid cm10 down on a bench and had "passed out". Pt reports dizziness. no pain. Coronavirus screen: Client denies travel out of the [place] in the last 14 days. Ebola Screen: Patient denies travel to an Ebola-affected area in the 21 days before illness onset. Initial Sepsis Screen: Does the patient meet any 2 criteria? No. Patient's initial sepsis screen is negative. Does the patient have a suspected source of infection? No. Patient's initial sepsis screen is negative. Risk Assessment: Do you want to hurt yourself or someone else? Patient reports no desire to harm self or others. Onset of symptoms was January 17, 2025. 13:19 Method Of Arrival: Ambulatory cm10 13:19 Acuity: MANE 3 cm10 Triage Assessment: 13:22 General: Appears in no apparent distress. uncomfortable, Behavior is calm, cooperative. cm10 Pain: Denies pain. Neuro: No deficits noted. Level of Consciousness is awake, alert, obeys commands, Oriented to person, place, time, situation, Appropriate for age. Neuro: Reports dizziness. Respiratory: No deficits noted. Airway is patent Respiratory effort is even, unlabored, Respiratory pattern is regular, symmetrical. Historical: - Allergies: 13:21 No Known Allergies; cm10 - PMHx: 13:21 Bronchitis; Thyroid dysfuntion; cm10 - PSHx: 13:21 Bladder; cm10 - Immunization history:: Adult Immunizations up to date. - Infectious Disease History:: Denies. - Social history:: Smoking status: Patient reports the use of cigarette tobacco products, unknown amount. Screenin:18 [facility] ED Fall Risk Assessment (Adult) History of falling in the last 3 months, ll1 including since admission Yes- physiologic fall (2 pts) Confusion or Disorientation No (0 pts) Intoxicated or Sedated No (0 pts) Impaired Gait Yes (1 pt) Mobility Assist Device Used Yes (1 pt) Altered Elimination No (0 pt) Score/Fall Risk Level 3 or more points = High Risk Maintained a safe environment, Hourly rounding (assess needs \\T\\ fall precautionary measures) done, Used ambulatory aids as needed (educated on \\T\\ assisted with). Abuse screen: Denies threats or abuse. Nutritional screening: No deficits noted. Tuberculosis screening: No symptoms or risk factors identified. Assessment: 17:17 Reassessment: No changes from previously documented assessment. Patient and/or family ll1 updated on plan of care and expected duration. Pain level reassessed. Patient is alert, oriented x 3, equal unlabored respirations, skin warm/dry/pink. Patient states symptoms have improved. 17:19 Cardiovascular: Rhythm is regular. ll1 Vital Signs: 13:19 BP 130 / 85; Pulse 78; Resp 18; Temp 97.5(O); Pulse Ox 91% on R/A; Weight 90.72 kg; cm10 Height 5 ft. 1 in. ; Pain 0/10; 17:19 BP 131 / 81; Pulse 77; Resp 17; Pulse Ox 95% on R/A; Pain 0/10; ll1 13:19 Body Mass Index 37.79 (90.72 kg, 154.94 cm) cm10 13:19 Pain Scale: Adult cm10 17:19 Pain Scale: Adult ll1 ED Course: 13:16 Patient arrived in ED. cm10 13:20 Triage completed. cm10 13:22 [facility]lyssa June [facility]-C [facility]. kb 13:22 Javy Navarro MD is Attending Physician. kb 13:22 Arm band placed on right wrist. Patient placed in waiting room. cm10 13:44 CT Head Brain wo Cont In Process Unspecified. EDMS 14:16 MRI - Brain Wo Cont In Process Unspecified. EDMS 14:42 Basic Metabolic Panel Sent. bc6 14:42 CBC with Diff Sent. bc6 14:42 Hepatic Function Sent. bc6 14:42 Magnesium Sent. bc6 14:42 Protime (+inr) Sent. bc6 14:42 Ptt, Activated Sent. bc6 14:42 Troponin High Sensitivity Sent. bc6 14:42 Initial lab(s) drawn, by la, sent to lab. Inserted saline lock: 20 gauge in right bc6 antecubital area, using aseptic technique. Blood collected. Flushed with 10 mL NS. 15:16 Chest Single View XRAY In Process Unspecified. EDMS 15:36 CT Neck Angio In Process Unspecified. EDMS 15:38 CT Head Angio In Process Unspecified. EDMS 17:17 No provider procedures requiring assistance completed. IV discontinued, intact, ll1 bleeding controlled, No redness/swelling at site. Pressure dressing applied. 17:20 Patient has correct armband on for positive identification. Provided Education on: ll1 return to ED for worsening symptom. Administered Medications: 16:16 Drug: NS 0.9% IV 1000 ml IV at 1000 ml once; to be given as a bolus over 60 minutes ll1 Route: IV; Rate: 1000 ml; Site: right antecubital; 17:15 Follow up: Response: No adverse reaction; IV Status: Completed infusion; IV Intake: ll1 1000ml Medication: 17:21 VIS not applicable for this client. ll1 Point of Care Testin:21 see EMS run sheet ll1 Ranges: Intake: 17:15 IV: 1000ml; Total: 1000ml. ll1 Outcome: 16:49 Discharge ordered by MD. durant 17:19 Discharged to home via wheelchair, ll1 17:19 Condition: stable 17:19 Discharge instructions given to patient, family, Instructed on discharge instructions, follow up and referral plans. Demonstrated understanding of instructions, follow-up care, 17:21 Patient left the ED. ll1 Signatures: Dispatcher [employer] Alyssa Burdick, PATIENT ACCESS MANAGERDieudonne Card RN RN ll1 Mitzi Bah 6 Michelle Badillo RN RN cm10
--- NOTE | 2025-01-17 16:50 | EDPHYS ---
Physician Documentation [facility] Name: Osmel Luz Age: 49 yrs Sex: Male : 1975 Arrival Date: 01/17/2025 Time: 12:55 Bed DX4 Private MD: ED Physician Javy Navarro HPI: 01/17 17:24 This 49 yrs old Male presents to ER via Ambulatory with complaints of Syncope. kb 17:24 Pt is a 49 year old male who presents for dizziness and syncope. Pt reports dizziness kb since waking up at 10 this morning. Mother states pt was at work, sat on a bench and passed out. Coworker called her so she picked him up and brought him here. Mother states pt's speech is "heavier" than normal in terms of slurred speech and reports he keeps answering questions with "I don't know." Pt recently was started on lisinopril for htn.. Historical: - Allergies: 13:21 No Known Allergies; cm10 - PMHx: 13:21 Bronchitis; Thyroid dysfuntion; cm10 - PSHx: 13:21 Bladder; cm10 - Immunization history:: Adult Immunizations up to date. - Infectious Disease History:: Denies. - Social history:: Smoking status: Patient reports the use of cigarette tobacco products, unknown amount. ROS: 15:56 Constitutional: As per HPI kb Exam: 15:31 Constitutional: This is a well developed, well nourished patient who is awake, alert, kb and in no acute distress. Head/Face: Normocephalic, atraumatic. ENT: Moist Mucous membranes Cardiovascular: Regular rate Respiratory: Respirations even and unlabored. No increased work of breathing. Talking in full sentences Abdomen/GI: Soft, non-tender. No distention Skin: Warm, dry with normal turgor. Normal color. MS/ Extremity: Pulses equal, no cyanosis. Neurovascular intact. Full, normal range of motion. 15:31 ECG was reviewed by the Attending Physician. 15:31 Neuro: Orientation: to person, place, time \\T\\ situation. Mentation: able to follow commands, Cranial nerves: Speech is slowed, slurred, Vital Signs: 13:19 BP 130 / 85; Pulse 78; Resp 18; Temp 97.5(O); Pulse Ox 91% on R/A; Weight 90.72 kg; cm10 Height 5 ft. 1 in. ; Pain 0/10; 17:19 BP 131 / 81; Pulse 77; Resp 17; Pulse Ox 95% on R/A; Pain 0/10; ll1 13:19 Body Mass Index 37.79 (90.72 kg, 154.94 cm) cm10 13:19 Pain Scale: Adult cm10 17:19 Pain Scale: Adult ll1 MDM: 13:22 Medical Screening Exam initiated 15:56 Data reviewed: vital signs, nurses notes. Management of patient was discussed with the kb following: Dr Wheeler, recommends MRI, CTA head and neck. . 17:24 Differential Diagnosis: cardiac arrhythmia, cerebrovascular accident, idiopathic kb syncope, vasovagal episode, dehydration. Historians other than the Patient: Parent: mother. Counseling: I had a detailed discussion with the patient and/or guardian regarding the historical points, exam findings, and any diagnostic results supporting the discharge/admit diagnosis, lab results, radiology results, the need for outpatient follow up, a family practitioner, to return to the emergency department if symptoms worsen or persist or if there are any questions or concerns that arise at home. 03 13:28 Order name: Basic Metabolic Panel; Complete Time: 15:15 kb 01/17 13:28 Order name: CBC with Diff; Complete Time: 14:56 kb 01/17 13:28 Order name: Hepatic Function; Complete Time: 15:15 kb 01/17 13:28 Order name: Magnesium; Complete Time: 15:15 kb 01/17 13:28 Order name: Protime (+inr); Complete Time: 15:02 kb 01/17 13:28 Order name: Ptt, Activated; Complete Time: 15:02 kb 01/17 13:28 Order name: Troponin High Sensitivity; Complete Time: 15:15 kb 01/17 13:28 Order name: CT Head Brain wo Cont; Complete Time: 13:55 kb 01/17 13:28 Order name: Chest Single View XRAY; Complete Time: 15:29 kb 01/17 13:28 Order name: MRI - Brain Wo Cont; Complete Time: 15:09 kb 01/17 15:21 Order name: CT Neck Angio; Complete Time: 15:56 kb 01/17 15:21 Order name: CT Head Angio; Complete Time: 15:56 kb 01/17 13:28 Order name: EKG; Complete Time: 13:29 kb 01/17 13:28 Order name: EKG - Nurse/Tech; Complete Time: 15:46 kb 01/17 13:28 Order name: IV Saline Lock; Complete Time: 14:42 kb 01/17 13:28 Order name: Labs collected and sent; Complete Time: 14:42 kb 01/17 13:28 Order name: NPO; Complete Time: 14:42 kb EC:31 Rate is 84 beats/min. Rhythm is regular. QRS [place] is Normal. CA interval is normal at kb 178 msec. QRS interval is normal at 92 msec. QT interval is normal at 434 msec. Administered Medications: 16:16 Drug: NS 0.9% IV 1000 ml IV at 1000 ml once; to be given as a bolus over 60 minutes ll1 Route: IV; Rate: 1000 ml; Site: right antecubital; 17:15 Follow up: Response: No adverse reaction; IV Status: Completed infusion; IV Intake: ll1 1000ml Point of Care Testin:21 see EMS run sheet ll1 Ranges: Critical Glucose Levels:Adult <50 mg/dl or >400 mg/dl <40 mg/dl or >180 mg/dl Disposition: 18:22 Co-signature as Attending Physician, Javy Navarro MD I reviewed the patient's care rt provided by the Advanced Practice Provider and agree with the diagnosis and treatment plan. Disposition Summary: 01/17/25 16:49 Discharge Ordered Notes: Location: Home kb Condition: Stable kb Diagnosis - Dizziness and giddiness kb - Syncope kb Followup: kb - With: Emergency Department - When: As needed - Reason: Worsening of condition Followup: kb - With: Private Physician - When: 2 - 3 days - Reason: Recheck today's complaints, Continuance of care, Re-evaluation by your physician Discharge Instructions: - Discharge Summary Sheet kb - Syncope, [id number] kb - Dizziness, Cusk-go-Swyo kb Forms: - Medication Reconciliation Form kb - Antibiotic Education kb - Prescription Opioid Use kb - Patient Portal Instructions kb - Leadership Thank You Letter kb Signatures: Dispatcher [employer] EDMS Alyssa June FNP-C FNP-Dieudonne Zambrano RN RN ll1 Javy Navarro MD MD rt Michelle Badillo RN RN cm10 Corrections: (The following items were deleted from the chart) 13: 13:29 BASIC METABOLIC PANEL+C.LAB.BRZ ordered. EDMS EDMS 13: 13:29 CBC+H.LAB.BRZ ordered. EDMS EDMS 13: 13:29 HEPATIC FUNCTION+C.LAB.BRZ ordered. EDMS EDMS 13: 13:29 MAGNESIUM+C.LAB.BRZ ordered. EDMS EDMS 13: 13:29 PROTIME (+INR)+COAG.LAB.BRZ ordered. EDMS EDMS 13: 13:29 PTT, ACTIVATED+COAG.LAB.BRZ ordered. EDMS EDMS 13: 13:29 Troponin High Sensitivity+C.LAB.BRZ ordered. EDMS EDMS 13: 13:29 Urinalysis+U.LAB.BRZ ordered. EDMS EDMS 17:26 17:24 Pt is a 49 year old male who presents for dizziness and syncope. Pt reports kb dizziness since waking up at 10 this morning. Mother states pt was at work, sat on a bench and passed out. Coworker called her so she picked him up and brought him here. Mother states pt's speech is "heavier" than normal in terms of slurred speech and reports he keeps answering questions with "I don't know." . kb
[2025-01-17 17:49] VITALS: TEMP 97.5
[2025-01-17 17:54] VITALS: BP 131/81; O2SAT 95
== END 2025-01-17 17:21 | disposition home or self-care (01) ==
LOC: ER 12:55
DX: R42 Dizziness and giddiness (principal); R55 Syncope and collapse; Z72.0 Tobacco use
CPT/HCPCS: 85025; 80048; 36415; 83735; 85610; 80076; 85730; 84484; 70450; 70496; 70498; 71045; 70551; Q9967; J7030; 93005